=== PATIENT | male | born 1940 | race Caucasian/White ===

== ENCOUNTER 2016-10-10 14:14 | Emergency (ER) | payer MEDICARE ==
[2016-10-10 14:40] VITALS: BP 138/61
--- NOTE | 2016-10-10 14:49 | UC ---
Ear Complaint HPI - HPI Summary HPI Summary: 76 y/o male PMHX of COPD and HTN presents to the urgent care c/o part of toothpick in his LF ear after cleaning his ear with it about 2 hours ago. Pt stes he usually likes to clean his ears with toothpicks, but today he bent it and it accidentally broke. He denies ear pain. He is with O2 machine and he states his O2sat level is usually at 94%. Pt denies fever, SOB, cough, abdominal pain, chest pain, N/V/D. Pt has not other complains. - History of Current Complaint Chief Complaint: UCEar Stated Complaint: FB IN EAR Time Seen by Provider: 10/10/16 14:47 Hx Obtained From: Patient Onset/Duration: Sudden Onset, Lasting Hours, Still Present Severity Initially: Moderate Severity Currently: Moderate Pain Intensity: 0 Pain Scale Used: 0-10 Numeric Aggravating Factors: FB Alleviating Factors: Nothing - Allergies/Home Medications Allergies/Adverse Reactions: Allergies Allergy/AdvReac Type Severity Reaction Status Date / Time No Known Allergies Allergy Verified 10/10/16 14:40 PMH/Surg Hx/FS Hx/Imm Hx Previously Healthy: Yes Cardiovascular History: Hypertension, Myocardial Infarction Respiratory History: COPD Other History Of: Anticoagulant Therapy - Plavix - Surgical History Surgical History: Yes Surgery Procedure, Year, and Place: 04/30 CARDIAC CATH WITH STENT [place] [facility] [place] DRUG ELUTIN STENT) , RT RADICAL NEPHRECTOMY 08/22 [facility] [place] , RT LEG SURGERY HAS VASCULAR STENT [place] 2011, - Social History Occupation: Retired Lives: With Family Alcohol Use: None Substance Use Type: None Smoking Status (MU): Former Smoker Type: Cigarettes Have You Smoked in the Last Year: No When Did the Patient Quit Smoking/Using Tobacco: 1996 - Immunization History Most Recent Influenza Vaccination: 11/2013 Most Recent Tetanus Shot: 09/09/12 Most Recent Pneumonia Vaccination: 09/09/12 Review of Systems Constitutional: Negative Skin: Negative Eyes: Negative ENT: Other - Foreign body in his Left ear Respiratory: Negative Cardiovascular: Negative Gastrointestinal: Negative Genitourinary: Negative Motor: Negative Neurovascular: Negative Musculoskeletal: Negative Neurological: Negative Psychological: Negative All Other Systems Reviewed And Are Negative: Yes Physical Exam Triage Information Reviewed: Yes Appearance: Well-Appearing - Pt with a nasal canula and portable O2 machine in no pain distress, No Pain Distress, Well-Nourished, Obese Vital Signs: Initial Vital Signs Temp 98.8 F 10/10/16 14:36 Pulse 98 10/10/16 14:36 Resp 16 10/10/16 14:36 BP 138/61 10/10/16 14:36 Pulse Ox 94 10/10/16 14:36 Vital Signs Reviewed: Yes Eye Exam: Normal Eyes: Positive: Conjunctiva Clear - PERRLA, EOMI ENT: Positive: Normal ENT inspection, Hearing grossly normal, Pharynx normal, TMs normal - RT external ear canal clear, RT TM WNL. LF external ear canal with part of toothpick and cerumen. LF TM pearly in color and with light reflex. Dental Exam: Normal Neck exam: Normal Neck: Positive: Supple, Nontender, No Lymphadenopathy Respiratory Exam: Normal Respiratory: Positive: Chest non-tender, Lungs clear, Normal breath sounds Cardiovascular Exam: Normal Cardiovascular: Positive: RRR, No Murmur, Pulses Normal Abdominal Exam: Normal Abdomen Description: Positive: Nontender, No Organomegaly, Soft. Negative: CVA Tenderness (R), CVA Tenderness (L) Bowel Sounds: Positive: Present Musculoskeletal Exam: Normal Musculoskeletal: Positive: Strength Intact, ROM Intact, No Edema Neurological Exam: Normal Psychological Exam: Normal Skin Exam: Normal Ear Complaint Course/Dx - Course Course Of Treatment: 76 y/o male PMHX of COPD and HTN presents to the urgent care c/o part of toothpick in his LF ear after cleaning his ear with it about 2 hours ago. Pt stes he usually likes to clean his ears with toothpicks, but today he bent it and it accidentally broke. He denies ear pain. He is with O2 machine and he states his O2sat level is usually at 94%. Pt denies fever, SOB, cough, abdominal pain, chest pain, N/V/D. Pt has not other complains.Hx obtained. Left external ear canal with part of a toothpick and cerumen. Foreign body removed with the aid of a currete. Also moderate cerumen was removed. Pt tolerated well procedure. Pt Rx corticosporin Otic drops. Pt strongly advised to f/u with his Electronic Equipment Repairer for further management of his COPD. Advised if he develops fever or ear pain to return to the urgetn care for further treatmetn. Pt understood and agreed. Left the clinic ambulating - Differential Dx/Diagnosis Differential Diagnosis/HQI/PQRI: Cerumen Impaction, Foreign Body, Otitis Externa , Otitis Media, Perforated TM, Trauma Provider Diagnoses: 1- Foreign body in the Left external ear canal Discharge - Discharge Plan Condition: Stable Disposition: HOME Prescriptions: Neomyc/Polym/HC 1% OTIC SUSP* [Cortisporin Otic Susp 1%*] 4 drop LEFT EAR TID # 1 btl Patient Education Materials: Ear Foreign Body (ED) Referrals: Daniela Lira MD [Primary Care Provider] - 1 Week Renee Esposito MD [Medical Doctor] - 3 Days Additional Instructions: 1- please apply otic antibiotic as directed to avoid infection. If ear pain or fever develops despite antibiotic, please return to the urgent care or f/u with your PCP for further treatment. 2- Please f/u with your Electronic Equipment Repairer DR Winter in 2-3 days for further treatment on your COPD
== END 2016-10-10 15:33 | disposition home or self-care (01) ==
LOC: UCEAST 14:14
DX: T16.2XXA Foreign body in left ear, initial encounter (principal); X58.XXXA Exposure to other specified factors, initial encounter; Y93.9 Activity, unspecified; Y92.9 Unspecified place or not applicable; H61.22 Impacted cerumen, left ear; I25.2 Old myocardial infarction; I10 Essential (primary) hypertension; Z79.01 Long term (current) use of anticoagulants; J44.9 Chronic obstructive pulmonary disease, unspecified; E66.9 Obesity, unspecified; Z95.5 Presence of coronary angioplasty implant and graft; Z87.891 Personal history of nicotine dependence
CPT/HCPCS: 69200; 99212; G0463

== ENCOUNTER 2018-08-24 12:15 | Emergency (ER) | payer MEDICARE ==
[2018-08-24] MEDS ORDERED: Tetan/Diph/Pertus SYR(Tdap)* 0.5 ML SYR(BOOSTRIX) use SYR IM ONE (13:01)
--- NOTE | 2018-08-24 14:19 | ED ---
Skin Complaint - HPI Summary HPI Summary: [id number] patient presents with laceration to dorsal index finger on the left hand. Reports he was using a clean paring knife to open a Gatorade bottle when he accidentally slipped with the knife and cut his finger. This bled a good bit but he was able to control it with pressure and elevation. He does take anticoagulants. He is unsure of his last tetanus shot but is pretty sure it's been longer than 5 years. Denies numbness, tingling, weakness. No other concerns as result of the injury. - History of Current Complaint Chief Complaint: EDLacSutureRecheck Time Seen by Provider: 08/24/18 13:01 Stated Complaint: LEFT FINGER LAC PER PT Hx Obtained From: Patient, Family/Supervisor Forming And Tempering - son Pain Intensity: 1 - Allergy/Home Medications Allergies/Adverse Reactions: Allergies Allergy/AdvReac Type Severity Reaction Status Date / Time No Known Allergies Allergy Verified 08/24/18 12:39 PMH/Surg Hx/FS Hx/Imm Hx Previously Healthy: Yes Endocrine/Hematology History: Reports: Hx Anticoagulant Therapy - Plavix Denies: Hx Diabetes, Hx Thyroid Disease Cardiovascular History: Reports: Hx Coronary Artery Disease, Hx Hypercholesterolemia, Hx Hypertension, Hx Peripheral Vascular Disease Denies: Hx Congestive Heart Failure, Hx Pacemaker/ICD Respiratory History: Reports: Hx Asthma, Hx Chronic Bronchitis, Hx Chronic Obstructive Pulmonary Disease (COPD), Hx Pneumonia, Other Respiratory Problems/ Disorders - COPD O2 2L NIGHT AND PRN DURING THE DAY History: Reports: Hx Renal Disease - right nephrectomy, Other Problems/ Disorders - Kidney CA & right kidney removed. 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 CA - Surgical History Surgery Procedure, Year, and Place: 04/30 CARDIAC CATH WITH STENT AT [facility] [place] ([facility] DRUG ELUTIN STENT) , RT RADICAL NEPHRECTOMY 08/22 [facility] [place] , RT LEG SURGERY HAS VASCULAR STENT [place] 2011, Hx Anesthesia Reactions: No - Immunization History Immunizations Up to Date: No Infectious Disease History: No Infectious Disease History: Denies: Hx Hepatitis, Hx Human Immunodeficiency Virus (HIV), Traveled Outside the [place] in Last 30 Days - Social History Alcohol Use: None Hx Substance Use: No Substance Use Type: Reports: None Hx Tobacco Use: Yes Smoking Status (MU): Former Smoker Type: Cigarettes Have You Smoked in the Last Year: No Review of Systems Positive: no symptoms reported Musculoskeletal: Negative Skin: Other - lac Neurological: Negative Psychological: Normal All Other Systems Reviewed And Are Negative: Yes Physical Exam Triage Information Reviewed: Yes Vital Signs On Initial Exam: Initial Vitals Temp Pulse Resp BP Pulse Ox 99.1 F 92 18 171/79 99 08/24/18 12:33 08/24/18 12:33 08/24/18 12:33 08/24/18 12:33 08/24/18 12:33 Vital Signs Reviewed: Yes Appearance: Positive: Well-Appearing, No Pain Distress, Well-Nourished Skin: Positive: Warm, Skin Color Reflects Adequate Perfusion, Dry - linear laceration over dorsal Left index finger - wound is well approximated, on active bleeding - appears clean and tissue well perfused ENT: Positive: Hearing grossly normal Respiratory/Lung Sounds: Positive: Other - wearing nasal canula for O2 from personal rx - no resp distress Musculoskeletal: Positive: Normal, Strength/ROM Intact Neurological: Positive: Normal, Sensory/Motor Intact, Alert, Oriented to Person Place, Time Psychiatric: Positive: Normal Procedures - Laceration/Wound Repair 1 Location: upper extremity - Lt index finger - dorsal aspect Description: Linear Length, Depth and Shape: 1cm x 2mm Laceration/Wound Explored: clean Closure: Skin Adhesive, SteriStrips Layer Closure?: No Sterile Dressing Applied?: Yes - as above - also placed splint - hemodynamically stable Diagnostics - Vital Signs Vital Signs Temp Pulse Resp BP Pulse Ox 08/24/18 12:33 99.1 F 92 18 171/79 99 - Laboratory Lab Statement: Any lab studies that have been ordered have been reviewed, and results considered in the medical decision making process. Course/Dx - Diagnoses Provider Diagnoses: Laceration of left index finger Discharge - Sign-Out/Discharge Documenting (check all that apply): Patient Departure Patient Received Moderate/Deep Sedation with Procedure: No - Discharge Plan Condition: Stable Disposition: HOME Patient Education Materials: Finger Laceration (ED), Steristrips (ED), Skin Adhesive Care (ED) Referrals: Daniela Lira MD [Primary Care Provider] - Additional Instructions: Keep Dressing clean and dry and in place until strips fall off on their own ( usually occurs in 5 days). Keep splint in place until wound heals. For pain you may try rest, ice, elevation and acetaminophen as needed. * If you develop redness, swelling, streaking, purulent drainage, fevers or chills, seek medical attention sooner or return to the emergency department. - Billing Disposition and Condition Condition: STABLE Disposition: Home
[2018-08-24 14:54] VITALS: BP 136/85
== END 2018-08-24 14:53 | disposition home or self-care (01) ==
LOC: ED 12:15
DX: S61.211A Laceration without foreign body of left index finger without damage to nail, initial encounter (principal); Z23 Encounter for immunization; W26.0XXA Contact with knife, initial encounter; I10 Essential (primary) hypertension; I25.10 Atherosclerotic heart disease of native coronary artery without angina pectoris; J44.9 Chronic obstructive pulmonary disease, unspecified; Z79.01 Long term (current) use of anticoagulants; Z87.891 Personal history of nicotine dependence
CPT/HCPCS: 12011; 90471; 90715; 99282

== ENCOUNTER 2019-05-01 04:55 | Inpatient (IN) | payer MEDICARE ==
[2019-05-01] MEDS ORDERED: IPRATROPIUM ALBUTEROL ONE (05:02)
[2019-05-01] MEDS ORDERED: IPRATROPIUM 0.5 MG ONE (05:02)
[2019-05-01] MEDS ORDERED: ALBUTEROL ONE (05:02)
[2019-05-01] MEDS ORDERED: IPRATROPIUM ALBUTEROL INH ONE (05:03)
[2019-05-01] MEDS ORDERED: IPRATROPIUM 0.5 MG INH ONE (05:03)
[2019-05-01] MEDS ORDERED: ALBUTEROL INH ONE (05:03)
[2019-05-01 05:32] LABS: Influenza A Molecular Negative (Negative); Influenza B Molecular Negative (Negative)
[2019-05-01 05:42] LABS: ABS Basophils 0.1 10^3/ul (0-0.2); ABS Eosinophils 0.1 10^3/ul (0-0.6); ABS Lymphocytes 1.5 10^3/ul (1.0-4.8); ABS Monocytes 1.5 10^3/ul (0-0.8); Eosinophil % 0.5 %; Hematocrit 39 % (42-52); Mean Corpuscular HGB Conc 33 g/dL (31-36); Mean Corpuscular Hemoglobin 30 pg (27-31); Mean Corpuscular Volume 91 fL (80-94); Mean Platelet Volume 9.3 fL (7.4-10.4); Platelet Count 159 10^3/uL (150-450); Red Blood Count 4.33 10^6 /uL (4.18-5.48); Red Cell Distribution Width 14 % (10-15); White Blood Count 16.3 10^3/uL (3.5-10.8)
[2019-05-01 05:59] LABS: Albumin 4.1 g/dL (3.2-5.2); Albumin/Globulin Ratio 1.8 (1-3); BUN/Creatinine Ratio 15.3 (8-20); Calcium 9.6 mg/dL (8.6-10.3); EGFR African American 64.4 (>60); EGFR Non-African American 53.2 (>60); Globulin 2.3 g/dL (2-4); Potassium 4.7 mmol/L (3.5-5.0); Total Bilirubin 1.1 mg/dL (0.2-1.0); Total Protein 6.4 g/dL (6.4-8.9)
[2019-05-01 06:01] LABS: Troponin I 0.01 ng/mL (<0.03)
[2019-05-01] MEDS ORDERED: cefTRIAXone ADVAN VIAL 1 GM in NS 0.9% 50 ML 50 ML IVPB ONE (06:07)
[2019-05-01] MEDS ORDERED: Azithromycin 500 mg/250 ml NS 500 MG/250 ML BAG IVPB ONE (06:07)
[2019-05-01] MEDS ORDERED: Al Hydrox/Mg Hydrox/Simet LIQ 30 ML UDC PO PRN (08:59)
[2019-05-01] MEDS ORDERED: NS 0.9% 1000 ml BAG 1,000 ML IV SCH (12:00)
[2019-05-01] MEDS: methylPREDNISolone SOD 40 mg/ml 1 ml VIAL IV SCH ×2 (12:28→21:44)
[2019-05-01] MEDS: Heparin 5000 UNITS/ML VIAL(*) 1 ml vial SUBCUT SCH ×2 (13:31→21:44)
[2019-05-01] MEDS: IPRATROPIUM ALBUTEROL INH SCH ×2 (14:24→19:00)
[2019-05-01] MEDS: IPRATROPIUM 0.5 MG INH SCH ×2 (14:24→19:00)
[2019-05-01] MEDS: ALBUTEROL INH SCH ×2 (14:24→19:00)
[2019-05-02] MEDS: IPRATROPIUM 0.5 MG INH SCH ×3 (01:38→13:37)
[2019-05-02] MEDS: IPRATROPIUM ALBUTEROL INH SCH ×3 (01:38→13:37)
[2019-05-02] MEDS: ALBUTEROL INH SCH ×3 (01:38→13:37)
[2019-05-02] MEDS: Heparin 5000 UNITS/ML VIAL(*) 1 ml vial SUBCUT SCH ×3 (06:35→20:06)
[2019-05-02] MEDS: Azithromycin 500 mg/250 ml NS 500 MG/250 ML BAG IVPB SCH (06:35)
[2019-05-02 07:59] LABS: ABS Lymphocytes 1.2 10^3/ul (1.0-4.8); ABS Monocytes 0.8 10^3/ul (0-0.8); Hematocrit 37 % (42-52); Hemoglobin 12.2 g/dL (14.0-18.0); Lymphocyte % 7.5 %; Mean Corpuscular HGB Conc 33 g/dL (31-36); Mean Corpuscular Hemoglobin 30 pg (27-31); Mean Corpuscular Volume 89 fL (80-94); Platelet Count 193 10^3/uL (150-450); Red Blood Count 4.09 10^6 /uL (4.18-5.48); Red Cell Distribution Width 14 % (10-15)
[2019-05-02 08:06] LABS: BUN/Creatinine Ratio 21.3 (8-20); EGFR African American 33.6 (>60); EGFR Non-African American 27.8 (>60); Potassium 4.6 mmol/L (3.5-5.0)
[2019-05-02] MEDS: methylPREDNISolone SOD 40 mg/ml 1 ml VIAL IV SCH ×2 (08:21→19:55)
[2019-05-02] MEDS: Aspirin EC 81 mg TAB.EC (enteric coated) PO SCH (08:21)
[2019-05-02] MEDS ORDERED: NS 0.9% 1000 ml BAG 1,000 ML IV ONE (09:04)
[2019-05-02] MEDS: SPIRIVA Respimat (tiotropium) 2.5 mcg/inh Inhaler INH SCH (09:27)
[2019-05-02] MEDS: cefTRIAXone ADVAN VIAL 1 GM in NS 0.9% 50 ML 50 ML IVPB SCH (10:52)
[2019-05-02] MEDS: NS 0.9% 1000 ml BAG 1,000 ML IV SCH (16:38)
[2019-05-02] MEDS: IPRATROPIUM ALBUTEROL INH PRN (23:22)
[2019-05-02] MEDS: ALBUTEROL INH PRN (23:22)
[2019-05-02] MEDS: IPRATROPIUM 0.5 MG INH PRN (23:22)
[2019-05-03 04:37] LABS: ABS Lymphocytes 1.1 10^3/ul (1.0-4.8); ABS Monocytes 0.8 10^3/ul (0-0.8); Hematocrit 36 % (42-52); Hemoglobin 12.2 g/dL (14.0-18.0); Lymphocyte % 5.7 %; Mean Corpuscular HGB Conc 34 g/dL (31-36); Mean Corpuscular Hemoglobin 30 pg (27-31); Mean Corpuscular Volume 90 fL (80-94); Mean Platelet Volume 9.2 fL (7.4-10.4); Platelet Count 229 10^3/uL (150-450); Red Blood Count 4.06 10^6 /uL (4.18-5.48); Red Cell Distribution Width 14 % (10-15)
[2019-05-03 04:52] LABS: BUN/Creatinine Ratio 28.6 (8-20); Calcium 8.5 mg/dL (8.6-10.3); EGFR African American 38.2 (>60); EGFR Non-African American 31.6 (>60); Potassium 4.8 mmol/L (3.5-5.0)
[2019-05-03] MEDS: NS 0.9% 1000 ml BAG 1,000 ML IV SCH (05:27)
[2019-05-03] MEDS: Heparin 5000 UNITS/ML VIAL(*) 1 ml vial SUBCUT SCH ×3 (05:27→20:44)
[2019-05-03] MEDS: Azithromycin 500 mg/250 ml NS 500 MG/250 ML BAG IVPB SCH (05:27)
[2019-05-03] MEDS: cefTRIAXone ADVAN VIAL 1 GM in NS 0.9% 50 ML 50 ML IVPB SCH (07:52)
[2019-05-03] MEDS: Aspirin EC 81 mg TAB.EC (enteric coated) PO SCH (07:53)
[2019-05-03] MEDS: methylPREDNISolone SOD 40 mg/ml 1 ml VIAL IV SCH ×2 (07:53→19:31)
[2019-05-03] MEDS ORDERED: NS 0.9% 1000 ml BAG 1,000 ML IV SCH (09:15)
[2019-05-03] MEDS: SPIRIVA Respimat (tiotropium) 2.5 mcg/inh Inhaler INH SCH (10:44)
[2019-05-03] MEDS: IPRATROPIUM ALBUTEROL INH PRN ×2 (12:58→20:40)
[2019-05-03] MEDS: ALBUTEROL INH PRN ×2 (12:58→20:40)
[2019-05-03] MEDS: IPRATROPIUM 0.5 MG INH PRN ×2 (12:58→20:40)
[2019-05-04] MEDS: Heparin 5000 UNITS/ML VIAL(*) 1 ml vial SUBCUT SCH ×2 (05:59→13:45)
[2019-05-04] MEDS: IPRATROPIUM ALBUTEROL INH PRN (06:09)
[2019-05-04] MEDS: IPRATROPIUM 0.5 MG INH PRN (06:09)
[2019-05-04] MEDS: ALBUTEROL INH PRN (06:09)
[2019-05-04] MEDS: SPIRIVA Respimat (tiotropium) 2.5 mcg/inh Inhaler INH SCH (08:47)
[2019-05-04] MEDS: cefTRIAXone ADVAN VIAL 1 GM in NS 0.9% 50 ML 50 ML IVPB SCH ×2 (10:01→10:08)
[2019-05-04] MEDS: Aspirin EC 81 mg TAB.EC (enteric coated) PO SCH (10:02)
[2019-05-04 16:09] VITALS: BP 113/42
== END 2019-05-04 18:00 | disposition home or self-care (01) | DRG 871 ==
LOC: ED → EDERBED → ED 04:55 → MEDTELE 04:55 → ED 04:55 → AA 08:50 → SDS 08:59 → MED 08:59 → INTOOBSV 08:59 → MED 08:59 → OBSVTOIN 08:59 → AA 08:59 → UNDOADMOB 08:59 → MED 09:00 → AA 10:15 → UNDODEPER 10:15 → MED 05-02 10:17
PROVIDERS: ADMIT Emergency Medicine; ATTEND Emergency Medicine

== ENCOUNTER 2019-05-05 20:25 | Inpatient (IN) | payer MEDICARE ==
--- NOTE | 2019-05-05 21:02 | ED ---
Altered Mental Status - HPI Summary HPI Summary: This pt is a 78 Y/O M presenting to [facility] with a CC of AMS and unresponsiveness since this afternoon at 1700. His son states that the pt was discharged from the hospital on 05/04/2019 with a Dx of COPD exacerbation and was reported to be improving. He was unable to get out of bed and complained of feeling weak. His son states that he is on O2 at home and states that the machine has not been working well. This pt is a level 5 caveat due to his unresponsive nature. His medical records were update on his last visit where he expressed concerns and became a DNR/DNI. We will be using the HPE from his most recent visit as a determinate for his code status. - History Of Current Complaint Chief Complaint: EDAltMentalStatus Stated Complaint: UNRESPONSIVE PER EMS Time Seen by Provider: 05/05/19 20:36 Hx Obtained From: Family/Aws Solution Architect - Son, EMS Hx From Patient Unobtainable Due To: Other - Unresponsive Last Known Well Date: 05/05/2019 1700 Onset/Duration: Still Present Timing: Constant Severity Initially: Moderate Severity Currently: Severe Character: Responsiveness - unresponsive Aggravating Factor(s): Unknown Alleviating Factor(s): Nothing Associated Signs And Symptoms: Positive: Weakness - per son Related History: Recent Illness - D/C from hospital on 05/04/2019 with a Dx of COPD exacerbation - Allergies/Home Medications Allergies/Adverse Reactions: Allergies Allergy/AdvReac Type Severity Reaction Status Date / Time No Known Allergies Allergy Verified 05/05/19 20:34 Home Medications: Home Medications Simvastatin TAB(NF) [Zocor 20 MG (NF)] 40 mg PO DAILY 02/26/12 [History Confirmed 05/05/19] Aspirin EC TAB* [Ecotrin EC Low Dose 81 MG*] 81 mg PO DAILY 05/25/14 [History Confirmed 05/05/19] Metoprolol Succinate XL TAB* [Toprol XL TAB*] 50 mg PO DAILY 05/25/14 [History Confirmed 05/05/19] Allopurinol TAB* [Zyloprim 100 MG TAB*] 100 mg PO DAILY 08/26/15 [History Confirmed 05/05/19] Albuterol 2.5MG/3ML (0.083%)* [Ventolin 2.5 MG/3 ML NEB.LISETH*] 2.5 mg INH Q4H PRN 05/01/19 [History Confirmed 05/05/19] Clopidogrel TAB* [Plavix TAB*] 75 mg PO DAILY 05/01/19 [History Confirmed ] Cyanocobalamin TAB* [Vitamin B12 TAB*] 1,000 mcg PO DAILY 05/01/19 [History Confirmed 05/05/19] Enalapril Maleate 20 mg PO DAILY 05/01/19 [History Confirmed 05/05/19] Ranitidine TAB (NF) [Zantac TAB (NF)] 150 mg PO BID 05/01/19 [History Confirmed 05/05/19] Umeclidinium 62.5 MDI(NF) [Incruse ELLIPTA MDI (NF)] 1 puff INH DAILY 05/01/19 [ History Confirmed 05/05/19] predniSONE 50 mg TAB [Deltasone 50 mg TAB] 50 mg PO DAILY #4 tab 05/04/19 [Rx Confirmed 05/05/19] PMH/Surg Hx/FS Hx/Imm Hx Previously Healthy: No - [facility] Endocrine/Hematology History: Reports: Hx Anticoagulant Therapy - Plavix Denies: Hx Diabetes, Hx Thyroid Disease Cardiovascular History: Reports: Hx Coronary Artery Disease, Hx Hypercholesterolemia, Hx Hypertension, Hx Peripheral Vascular Disease Denies: Hx Congestive Heart Failure, Hx Pacemaker/ICD Respiratory History: Reports: Hx Asthma, Hx Chronic Bronchitis, Hx Chronic Obstructive Pulmonary Disease (COPD), Hx Pneumonia, Other Respiratory Problems/ Disorders - COPD O2 2L NIGHT AND PRN DURING THE DAY History: Reports: Hx Renal Disease - right nephrectomy, Other Problems/ Disorders - Kidney CA & right kidney removed. 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 CA - Surgical History Surgery Procedure, Year, and Place: 04/30 CARDIAC CATH WITH STENT AT [facility] [place] ([facility] DRUG ELUTIN STENT) , RT RADICAL NEPHRECTOMY 08/22 [facility] [place] , RT LEG SURGERY HAS VASCULAR STENT [place] 2012, Hx Anesthesia Reactions: No Infectious Disease History: No Infectious Disease History: Denies: Hx Hepatitis, Hx Human Immunodeficiency Virus (HIV), Traveled Outside the [place] in Last 30 Days - Family History Known Family History: Positive: Cardiac Disease - CAD, [place], Other - gastric cancer - Social History Alcohol Use: None Hx Substance Use: No Substance Use Type: Reports: None Hx Tobacco Use: Yes Smoking Status (MU): Former Smoker Type: Cigarettes Have You Smoked in the Last Year: No Review of Systems - ROS Summary Review of Systems Summary: A full ROS is unobtainable due to the pt's AMS. Pt is currently unresponsive and a level 5 caveat. Neurological/Mental Status: Other - unresponsive All Other Systems Reviewed And Are Negative: No Physical Exam - Summary Physical Exam Summary: Appearance: Elderly male unresponsive to verbal simulation. Pt is responsive to painful simulation. Skin: Warm, dry, no obvious rash Eyes: sclera anicteric, no conjunctival pallor, Pupils are pinpoint bilaterally. ENT: mucous membranes moist, Neck: deferred Respiratory: No signs of respiratory distress Cardiovascular: Appears well perfused, pulses are nml Abdomen: deferred Musculoskeletal: Moving all 4 extremities without obvious discomfort Neurological: Awake and alert, mentation is normal, speech is fluent and appropriate Psychiatric: affect is normal, does not appear anxious or depressed Triage Information Reviewed: Yes Vital Signs On Initial Exam: Initial Vitals Temp Pulse Resp BP Pulse Ox 99.3 F 104 20 130/50 92 05/05/19 20:31 05/05/19 20:31 05/05/19 20:31 05/05/19 20:31 05/05/19 20:31 Vital Signs Reviewed: Yes Procedures - Sedation Patient Received Moderate/Deep Sedation with Procedure: No Diagnostics - Vital Signs Vital Signs Temp Pulse Resp BP Pulse Ox 05/05/19 20:31 99.3 F 104 20 130/50 92 - Laboratory Result Diagrams: 05/05/19 21:53 05/05/19 21:53 Lab Statement: Any lab studies that have been ordered have been reviewed, and results considered in the medical decision making process. - Radiology CXR Radiology Interpretation Completed By: ED Physician Summary of Radiographic Findings: CXR: Large L pleural effusion which is new compared to most recent film on 05/01/2019. Pending offical review. - CT Brain CT CT Interpretation Completed By: Radiologist Summary of CT Findings: Patient motion without definite acute intracranial abnormality. ED physician has reviewed this report. - EKG 2154 Cardiac Rate: NL - 96 BPM EKG Rhythm: Sinus Rhythm ST Segment: Normal Ectopy: None Summary of EKG Findings: An EKG at 2154 reveals NSR at 96 BPM, nml axis, nml intervals. No STEMI. No acute changes. Interpreted by Dr. Roldan at 05/05/2019 2158. Re-Evaluation - Re-Evaluation First Eval Re-Evaluation Time: 21:03 Change: Unchanged Comment: Son informed of pt's desires to be a DNR/DNI. Son is aggreeable. Altered Mental Statu Course/Dx - Course Course Of Treatment: This pt is a 78 Y[facility]O M [facility] [place] [facility] [place] and unresponsiveness since this afternoon at 1700. His son states that the pt was discharged from the hospital yesterday and was reported to be improving. He was unable to get out of bed and complained of feeling weak. His PE found that he is an elderly male unresponsive to verbal simulation. Pt is responsive to painful simulation. Pupils are pinpoint bilaterally. His most recent documentation from his discharge summary states that the pt was of sound mind and wishes to be a DNR/DNI. His son was made aware and is agreeable to his father's wishes. An EKG at 2154 reveals NSR at 96 BPM, nml axis, nml intervals. No STEMI. No acute changes. His WBC is a 32.5. He has a troponin of a .04. Brain CT: Patient motion without definite acute intracranial abnormality. CXR: Large L pleural effusion which is new compared to most recent film on 05/01/2019. He will be admitted to [facility] [place] for further care with a Dx of AMS and a L plueral effusion. - Diagnoses Provider Diagnoses: AMS (altered mental status), Pleural effusion, left - Provider Notifications Discussed Care Of Patient With: Chelsie Sung Time Discussed With Above Provider: 23:32 Instructed by Provider To: Admit As Inpatient Admit/Transition Orders Completed By ED Provider: Yes Discharge ED - Sign-Out/Discharge Documenting (check all that apply): Patient Departure - admitted - Discharge Plan Condition: Stable Disposition: ADMITTED TO [facility] - Billing Disposition and Condition Condition: STABLE Disposition: Admitted to [facility] - Attestation Statements Document Initiated by Graeme: Yes Documenting Scribe: Alex Mederos Provider For Whom Graeme is Documenting (Include Credential): Rogelio Roldan MD Scribe Attestation: IAlex, scribed for Rogelio Roldan MD on 05/06/19 at 0648. Scribe Documentation Reviewed: Yes Provider Attestation: The documentation as recorded by the Alex gutierrez accurately reflects the service I personally performed and the decisions made by me, Rogelio Roldan MD Status of Scribe Document: Viewed
[2019-05-05 22:02] LABS: Hematocrit 42 % (42-52); Hemoglobin 13.5 g/dL (14.0-18.0); Mean Corpuscular HGB Conc 32 g/dL (31-36); Mean Corpuscular Hemoglobin 30 pg (27-31); Mean Corpuscular Volume 92 fL (80-94); Mean Platelet Volume 8.4 fL (7.4-10.4); Platelet Count 373 10^3/uL (150-450); Red Blood Count 4.57 10^6 /uL (4.18-5.48); Red Cell Distribution Width 14 % (10-15); White Blood Count 32.1 10^3/uL (3.5-10.8)
[2019-05-05 22:18] LABS: ALT 34 U/L (7-52); AST 28 U/L (13-39); Albumin 3.9 g/dL (3.2-5.2); Albumin/Globulin Ratio 1.6 (1-3); Alkaline Phosphatase 89 U/L (34-104); BUN/Creatinine Ratio 31.4 (8-20); Blood Urea Nitrogen 49 mg/dL (6-24); CO2 Carbon Dioxide 40 mmol/L (22-32); Calcium 9.6 mg/dL (8.6-10.3); Chloride 104 mmol/L (101-111); EGFR African American 52.6 (>60); EGFR Non-African American 43.5 (>60); Globulin 2.4 g/dL (2-4); Glucose 126 mg/dL (70-100); Potassium 5.6 mmol/L (3.5-5.0); Sodium 144 mmol/L (135-145); Total Protein 6.3 g/dL (6.4-8.9)
[2019-05-05 22:25] LABS: Troponin I 0.04 ng/mL (<0.03)
[2019-05-05 22:35] LABS: Polychromasia 1+
[2019-05-05 22:36] LABS: ABS Basophils 0.2 10^3/ul (0-0.2); ABS Neutrophils 23.9 10^3/ul (1.5-7.7); Alcohol 11 mg/dL (<10); Eosinophil % 0.1 %; Lymphocyte % 9.3 %; Nucleated Red Blood Cells % 0.1
[2019-05-06] MEDS ORDERED: Vancomycin(*) 1,000 MG in NS 0.9% 250 ML* 250 ML IVPB ONE (00:53)
[2019-05-06] MEDS ORDERED: Zosyn per Pharmacy* NOTE FOLLOW UP SCH (01:00)
[2019-05-06] MEDS ORDERED: Zosyn 3.375 GM IV - ED ONCE IVPB ONE ×2 (01:00)
[2019-05-06] MEDS ORDERED: Vancomycin per Pharmacy* NOTE FOLLOW UP SCH (01:00)
[2019-05-06] MEDS ORDERED: Enoxaparin(*) 30 MG/0.3 ML SYR SUBCUT SCH (01:00)
[2019-05-06] MEDS: methylPREDNISolone 125 MG* 2 ML VIAL IV SCH ×3 (01:13→18:15)
[2019-05-06] MEDS: Albuterol/Ipratropium NEB.SOL* Albuterol 2.5 MG/Ipratropium 0.5 MG 3 ML INH SCH ×4 (01:35→20:13)
[2019-05-06] MEDS ORDERED: NS 0.9% 500 ML* 500 ML IV ONE (01:52)
[2019-05-06] MEDS ORDERED: NS 0.9% 250 ML* 250 ML ONE (01:55)
[2019-05-06] MEDS ORDERED: Vancomycin(*) 1,250 MG in NS 0.9% 250 ML* 250 ML IVPB ONE (02:00)
[2019-05-06 03:11] LABS: C Reactive Protein 18.25 mg/L (<8.01)
[2019-05-06] MEDS ORDERED: ZOSYN 3.375 GM Q8H per EXTENDED INFUSION IVPB SCH ×2 (05:00)
[2019-05-06] MEDS ORDERED: Metoprolol Tartrate IV* 1 MG/ML 5 ML VIAL IV ONE (05:02)
--- NOTE | 2019-05-06 06:17 | HP ---
HISTORY AND PHYSICAL: DATE OF ADMISSION: 05/06/19 PRIMARY CARE PHYSICIAN: Daniela Brown MD HEALTHCARE PROXY: His son, Carlos Alberto Medel Jr., goes by Clarence. Phone number . CODE STATUS: DNR/DNI. CHIEF COMPLAINT: Acute onset of somnolence and altered mental status. HISTORY OF PRESENT ILLNESS: Mr. Medel is a 78-year-old man with COPD with chronic hypoxemic respiratory failure, on home O2 of 2 L; coronary artery disease with OR in 2011; and renal cell carcinoma, status post nephrectomy in 2003, who is presenting 1 day after discharge from this hospital for new onset of altered mental status since this afternoon. The patient was admitted for 3 days prior to discharge on day prior to presentation. This admission was for worsening dyspnea and sputum production consistent with a COPD exacerbation. Of note, during that hospitalization, the patient had 1 temperature in ER to 100.4 and was tachycardic. He was tested with a viral panel, flu swab, and for Covid, and all of these tests returned negative. During that time, he was on ceftriaxone and azithromycin; however, these were not continued after discharge as the patient symptomatically improved and it was thought he was not infected and had a COPD exacerbation in isolation. He was discharged on prednisone 50 mg to take for 4 additional days. His son reports that after discharge, while the patient felt better, he was not near his baseline but able to converse with the patient, text and also walk around the home. By the next morning, the patient had reported to his son that he felt low energy. He did not give any other symptoms , and he felt like he wanted to just lay in his bed after waking up and having a breakfast of coffee and toast. The patient went to lie down on his bed and his son went to the grocery store. By the time the son returned from the grocery store, the patient had largely lost his mental status, so the son brought him to the ER for further evaluation. In the emergency room, the patient was noted to have leukocytosis to 32, which is higher than his discharge white blood cell count of 19. His renal function had improved since discharge. He had a troponin elevation of 0.04 and chest x- ray concerning for large pleural effusion on the left, which is new. A brain CT was performed and difficult to interpret given motion, but was without acute findings. The patient received no interventions in the emergency room, was asked to be admitted to the hospitalist service for further workup and management. PAST MEDICAL HISTORY: 1. COPD with chronic hypoxic respiratory failure, on 2 L of oxygen at home. 2. CAD with OR in 2011. 3. Renal cell carcinoma, status post nephrectomy in 2003. 4. Peripheral vascular disease with vascular stent placed in the lower extremities. HOME MEDICATIONS: 1. Prednisone 50 mg daily for 3 more days. 2. Aspirin 81 mg daily. 3. Clopidogrel 75 mg daily. 4. Metoprolol succinate 50 mg daily. 5. Enalapril 20 mg daily. 6. Simvastatin 20 mg daily. 7. Incruse Ellipta 1 puff daily. 8. Ventolin nebulizer every 4 hours as needed for shortness of breath. 9. Vitamin B12 1000 mcg daily. 10. Ranitidine 150 mg twice a day as needed for heartburn. 11. Allopurinol 100 mg daily. ALLERGIES: No known drug allergies. FAMILY HISTORY: The mother from stomach cancer. Father when the patient was young of unclear cause. SOCIAL HISTORY: The patient lives in the home that he built and his son lives with him and cares for him. This son is Clarence, his older son who is also his proxy. The patient has a 35-pack year smoking history and quit in 1995. No alcohol or recreational drug use. 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 REVIEW OF SYSTEMS: A complete 10-point review of systems was unable to be performed given that the patient was unresponsive during the interview. The son had no further symptoms to elucidate. He denies that his father was complaining of a stiff neck, shortness of breath, fevers, worsening cough, dysuria, or headache. The son reports his father is on 2 L of supplemental oxygen at baseline. PHYSICAL EXAMINATION GENERAL: The patient is a critically ill, elderly man, in no acute distress, neither alert nor interactive. The patient breathing through mouth with mouth wide open. VITAL SIGNS: Afebrile, hear rate 110, blood pressure 110/46, respiratory rate 26, oxygen saturation 93% on 7 L face mask. HEENT: Moist mucous membranes. Pupils pinpoint bilaterally with anicteric sclerae. No pallor. LUNGS: Clear on right. Absent breath sounds over lower 2/3 of left lung. No wheeze. HEART: Tachycardic, regular rhythm. No murmurs, gallops, or rubs. EXTREMITIES: Warm and well perfused with 1+ edema half way up shins. NEUROLOGIC: Will open eyes to loud verbal stimuli and occasionally will track. Withdraws to pain in 4 extremities. Intermittently does not blink to visual threat. Face symmetric. DIAGNOSTIC STUDIES: CBC notable for leukocytosis to 32 with 74% neutrophils. Hemoglobin 13.5, which is slightly above baseline with normal MCV. BMP notable for elevated potassium to 5.6 BUN/creatinine 49/1.56, which is at the patient's more recent baseline and improved since last discharge. Bicarb is 40. Troponin 0.04. Chest x-ray with large left-sided pleural effusion, which is new compared to prior. CT head with motion artifact without definite acute intracranial abnormality. EKG with normal sinus rhythm, low voltage, rate 96. No acute ischemic changes. ASSESSMENT AND PLAN: Mr. Medel is a 78-year-old man with COPD on home oxygen, CAD with history of OR and recent hospitalization for COPD exacerbation, who is presenting now with acute alterations in mental status. He is found with new left-sided pleural effusion and physical exam concerning for significantly decreased mental status. 1. Altered mental status. The patient is at increased risk for cerebrovascular accident and it is possible that the patient did have a massive stroke, which would account for acute altered mental status. Brain CT is normal at this time, but if the patient is able to tolerate, we will get a brain MRI in the morning. It is also possible that the patient has an acute toxic metabolic encephalopathy, possibly from untreated infection. Likely source could be new left-sided effusion. If the patient indeed had pneumonia during last hospitalization, this would be the most likely source of infection. As patient has COPD, will check an ABG, and I suspect he may be retaining CO2 , however at this time, he is a poor candidate for BPAP and he is also DNI. Still pending UA result. Arguing against infections is that the patient has been afebrile and was not reporting focal signs of infection to his son. It does not seem the patient was started on any new medications since discharge and he has not access to opioids, so does not seem to be a medication-induced encephalopathy. 2. Chronic obstructive pulmonary disease. The patient unable to give symptoms , but for now can treat tachypnea and hypoxia as though he is having a chronic obstructive pulmonary disease exacerbation currently. We will order the patient for IV steroids and DuoNeb. The patient's white blood cell count is higher than discharge, although all his cell lines have increased, but in case the patient does have an ongoing bacterial infection, the patient will be started on broad-spectrum antibiotics with vancomycin and Zosyn. Will check ABG and CRP as well. The patient will be continued on his home inhaler umeclidinium 1 puff daily. Given severely impaired mental status, patient is not a candidate for BPAP at this time but will continue to re-assess. 3. History of myocardial infarction and peripheral vascular disease with stent. The patient will be continued on his home aspirin, clopidogrel and a statin. 4. DVT prophylaxis. Initiate Lovenox daily. 5. Code status. DNR/DNI. Had extensive conversation with the patient's son, Clarence and he expresses that his father wished to have no heroic measures and would want limited medical interventions, especially included DNR and DNI. This paperwork was filled out with this son at the bedside. The patient will be amenable to trial of antibiotics and other limited medical interventions, but no artificial feeds. Son understands that his father's prognosis is grave. TIME SPENT: Approximately 60 minutes was spent on admission of this patient, more than half of which is spent at bedside for interview and exam. [id number]/[facility] #: [id number] MTDD
[2019-05-06] MEDS: SPIRIVA Respimat* (tiotropium) 2.5 mcg/inh Inhaler INH SCH (08:03)
--- NOTE | 2019-05-06 08:47 | PN ---
Progress Note - Progress Note Date of Service: 05/06/19 Note: Called to bedside by RN and RT. Patient tachypneic, lethargic and on 15L simple mask. ABG confirms respiratory acidosis. Called patient's son and left message. Plan to transfer to ICU, discussed case with ICU attending and Dr Baker. Patient DNR and DNI but will need non-invasive respiratory support. Though patient was ruled out for COVID-19 during the last hospitalization, he now returns critically ill with new left sided pleural effusion, lung "white out " on chest xray. Recommend repeat COVID-19 rule out. Discussed with ICU attending.
[2019-05-06] MEDS ORDERED: Clopidogrel TAB* 75 MG PO SCH (09:00)
[2019-05-06] MEDS ORDERED: Metoprolol Succinate XL TAB* 50 MG PO SCH (09:00)
[2019-05-06] MEDS ORDERED: Allopurinol TAB* 100 MG PO SCH (09:00)
[2019-05-06] MEDS ORDERED: Atorvastatin* 20 MG TAB PO SCH (09:00)
[2019-05-06] MEDS ORDERED: Aspirin EC TAB* 81 MG TAB.EC PO SCH (09:00)
[2019-05-06] MEDS ORDERED: Lactated Ringers 1000 ML Bag* 1,000 ML IV ONE (11:00)
[2019-05-06 11:26] LABS: Hematocrit 42 % (42-52); Hemoglobin 13.6 g/dL (14.0-18.0); Mean Corpuscular HGB Conc 33 g/dL (31-36); Mean Corpuscular Hemoglobin 30 pg (27-31); Mean Corpuscular Volume 92 fL (80-94); Mean Platelet Volume 8.8 fL (7.4-10.4); Platelet Count 192 10^3/uL (150-450); Red Blood Count 4.57 10^6 /uL (4.18-5.48); Red Cell Distribution Width 14 % (10-15); White Blood Count 34.9 10^3/uL (3.5-10.8)
[2019-05-06 11:38] LABS: Albumin 3.4 g/dL (3.2-5.2); Albumin/Globulin Ratio 1.8 (1-3); BUN/Creatinine Ratio 28.6 (8-20); Calcium 8.9 mg/dL (8.6-10.3); EGFR African American 39.7 (>60); EGFR Non-African American 32.8 (>60); Globulin 1.9 g/dL (2-4); Total Bilirubin 0.6 mg/dL (0.2-1.0); Total Protein 5.3 g/dL (6.4-8.9)
[2019-05-06] MEDS ORDERED: Insulin REGULAR(*) 1 UNITS UNIT IV PUSH ONE (12:15)
[2019-05-06 12:28] LABS: Urine Appearance Turbid; Urine Bilirubin Negative (Negative); Urine Blood 3+ (Negative); Urine Color Yellow; Urine Glucose Negative (Negative); Urine Ketones Negative (Negative); Urine Nitrite Negative (Negative); Urine Protein 1+(30 mg/dL) (Negative); Urine Urobilinogen Negative (Negative)
[2019-05-06 12:34] LABS: Urine Bacteria Absent (Absent); Urine Red Blood Cell 3+(>10/hpf) (Absent); Urine White Blood Cell 3+(>20/hpf) (Absent)
[2019-05-06] MEDS: Dextrose 50% Syringe 50 ML* 25 GM/50 ML SYRINGE IV PUSH PRN (12:52)
[2019-05-06] MEDS ORDERED: Lactated Ringers 1000 ML Bag* 1,000 ML IV SCH (13:00)
[2019-05-06] MEDS: Metoprolol Tartrate IV* 1 MG/ML 5 ML VIAL IV SCH ×2 (14:20→20:05)
[2019-05-06] MEDS: Cefepime(*) 1 GM in NS 0.9% 50 ML* 50 ML IVPB SCH (14:20)
--- NOTE | 2019-05-06 14:54 | PN ---
Progress Note - Progress Note Date of Service: 05/06/19 Note: Consultation Note -- Critical Care Reason for consult: ICU transfer, AMS, hypercapnia requiring bipap Limitations in history/physical: Limited d/t AMS and family not currently present Date of consult: 05/06/2019 HPI: 78M with known medical history of COPD with chronic hypoxemic respiratory failure, on 2L nasal cannula home O2, CAD with OR in 2011, renal cell carcinoma s/p right nephrectomy in 2003, PVD with stents, with recent admission, presents with progressive altered mental status. He was discharged on 05/03 after a 3 day admission for COPD exacerbation. He went home feeling better, was at home one night, and woke up the next morning feeling tired and low energy. His son came home from the grocery store and noticed that he was very altered so he brought him to the ED. He was initially admitted to floor but transferred to ICU after experiencing respiratory acidosis with worsening confusion. ROS: ROS unable to be obtained secondary to AMS PMHx: COPD on 2L NC at home, CAD with OR in 2011, renal cell carcinoma s/p right nephrectomy in 2003, PVD with stents in lower extremities PSHx: unknown Family History: Mother- stomach cancer, Father passed when young of unclear cause Social History: Lives with his son, no smoking, alcohol or drug use Allergies: NKDA Home Medications: Simvastatin TAB(NF) [Zocor 20 MG (NF)] 40 mg PO DAILY 02/26/12 [History Confirmed 05/05/19] Aspirin EC TAB* [Ecotrin EC Low Dose 81 MG*] 81 mg PO DAILY 05/25/14 [History Confirmed 05/05/19] Metoprolol Succinate XL TAB* [Toprol XL TAB*] 50 mg PO DAILY 05/25/14 [History Confirmed 05/05/19] Allopurinol TAB* [Zyloprim 100 MG TAB*] 100 mg PO DAILY 08/26/15 [History Confirmed 05/05/19] Albuterol 2.5MG/3ML (0.083%)* [Ventolin 2.5 MG/3 ML NEB.LISETH*] 2.5 mg INH Q4H PRN 05/01/19 [History Confirmed 05/05/19] Clopidogrel TAB* [Plavix TAB*] 75 mg PO DAILY 05/01/19 [History Confirmed ] Cyanocobalamin TAB* [Vitamin B12 TAB*] 1,000 mcg PO DAILY 05/01/19 [History Confirmed 05/05/19] Enalapril Maleate 20 mg PO DAILY 05/01/19 [History Confirmed 05/05/19] Ranitidine TAB (NF) [Zantac TAB (NF)] 150 mg PO BID 05/01/19 [History Confirmed 05/05/19] Umeclidinium 62.5 MDI(NF) [Incruse ELLIPTA MDI (NF)] 1 puff INH DAILY 05/01/19 [ History Confirmed 05/05/19] predniSONE 50 mg TAB [Deltasone 50 mg TAB] 50 mg PO DAILY #4 tab 05/04/19 [Rx Confirmed 05/05/19] Tele: Sinus tachycardia Vitals: Vital Signs 05/05/19 05/05/19 05/05/19 20:31 20:40 21:03 Temperature 99.3 F Pulse Rate 104 101 100 Respiratory 20 Rate Blood Pressure 130/50 149/63 (mmHg) O2 Sat by Pulse 92 94 92 Oximetry 05/05/19 05/05/19 05/05/19 21:10 21:39 22:14 Temperature Pulse Rate 97 99 104 Respiratory 20 Rate Blood Pressure 111/44 138/50 (mmHg) O2 Sat by Pulse 91 92 97 Oximetry 05/05/19 05/05/19 05/05/19 22:39 23:00 23:09 Temperature Pulse Rate 98 104 102 Respiratory 20 20 20 Rate Blood Pressure 139/57 143/70 (mmHg) O2 Sat by Pulse 97 98 97 Oximetry 05/05/19 05/05/19 05/06/19 23:36 23:39 00:00 Temperature Pulse Rate 106 107 109 Respiratory 20 Rate Blood Pressure 142/65 (mmHg) O2 Sat by Pulse 96 96 95 Oximetry 05/06/19 05/06/19 05/06/19 00:09 00:23 00:40 Temperature 97.1 F Pulse Rate 111 107 Respiratory 23 Rate Blood Pressure 145/63 127/47 (mmHg) O2 Sat by Pulse 94 92 Oximetry 05/06/19 05/06/19 05/06/19 01:00 01:10 01:17 Temperature Pulse Rate 112 112 114 Respiratory 24 26 Rate Blood Pressure 98/37 110/46 (mmHg) O2 Sat by Pulse 91 90 90 Oximetry 05/06/19 05/06/19 05/06/19 01:36 01:39 02:00 Temperature Pulse Rate 112 112 111 Respiratory 26 28 27 Rate Blood Pressure 93/46 (mmHg) O2 Sat by Pulse 85 85 84 Oximetry 05/06/19 05/06/19 05/06/19 02:37 02:43 02:45 Temperature 97.5 F 97.1 F Pulse Rate 113 112 Respiratory 28 25 28 Rate Blood Pressure 107/41 104/68 (mmHg) O2 Sat by Pulse 88 85 Oximetry 05/06/19 05/06/19 05/06/19 04:01 04:24 05:24 Temperature 97.4 F Pulse Rate 120 127 Respiratory 20 Rate Blood Pressure 152/58 132/48 (mmHg) O2 Sat by Pulse 91 98 Oximetry 05/06/19 05/06/19 05/06/19 05:52 07:45 08:00 Temperature Pulse Rate 105 118 Respiratory 32 36 Rate Blood Pressure 118/50 (mmHg) O2 Sat by Pulse 95 92 Oximetry 05/06/19 05/06/19 05/06/19 08:04 08:42 08:45 Temperature 97.1 F 100.5 F Pulse Rate 122 128 127 Respiratory 36 36 37 Rate Blood Pressure 115/34 106/83 125/60 (mmHg) O2 Sat by Pulse 95 92 91 Oximetry 05/06/19 05/06/19 05/06/19 09:00 09:16 09:30 Temperature Pulse Rate 127 133 139 Respiratory 35 34 41 Rate Blood Pressure 126/71 107/59 120/36 (mmHg) O2 Sat by Pulse 91 93 94 Oximetry 05/06/19 05/06/19 05/06/19 09:45 10:00 10:01 Temperature Pulse Rate 132 130 130 Respiratory 34 33 33 Rate Blood Pressure 130/65 93/60 (mmHg) O2 Sat by Pulse 96 94 96 Oximetry 05/06/19 05/06/19 05/06/19 10:15 10:30 10:45 Temperature Pulse Rate 132 133 131 Respiratory 28 32 32 Rate Blood Pressure 96/57 92/59 97/45 (mmHg) O2 Sat by Pulse 96 97 98 Oximetry 05/06/19 05/06/19 05/06/19 11:00 11:15 11:31 Temperature Pulse Rate 132 132 133 Respiratory 34 31 24 Rate Blood Pressure 117/50 114/48 114/51 (mmHg) O2 Sat by Pulse 99 96 100 Oximetry 05/06/19 05/06/19 05/06/19 11:32 11:46 12:00 Temperature 100.6 F Pulse Rate 133 137 134 Respiratory 34 33 32 Rate Blood Pressure 110/47 127/68 102/50 (mmHg) O2 Sat by Pulse 99 100 99 Oximetry 05/06/19 05/06/19 05/06/19 12:15 12:30 12:45 Temperature Pulse Rate 131 130 129 Respiratory 30 25 28 Rate Blood Pressure 117/47 113/55 115/61 (mmHg) O2 Sat by Pulse 100 100 99 Oximetry 05/06/19 05/06/19 05/06/19 13:00 13:15 13:30 Temperature Pulse Rate 143 134 140 Respiratory 24 31 34 Rate Blood Pressure 105/44 99/52 106/87 (mmHg) O2 Sat by Pulse 100 99 99 Oximetry 05/06/19 05/06/19 05/06/19 13:45 13:49 14:00 Temperature Pulse Rate 139 138 133 Respiratory 16 29 25 Rate Blood Pressure 91/34 141/88 (mmHg) O2 Sat by Pulse 99 99 100 Oximetry 05/06/19 14:01 Temperature Pulse Rate 127 Respiratory 22 Rate Blood Pressure 94/45 (mmHg) O2 Sat by Pulse 100 Oximetry Intake and Output Last 24 Hours 05/04/19 05/05/19 05/06/19 05/07/19 06:59 06:59 06:59 06:59 Intake Total 285 1186 Output Total 0 220 Balance 285 966 Weight 211 lb Intake: IV Fluids 285 1086 LR 1086 Vancomycin 285 IVPB 100 ABX - ZOSYN 100 Oral 0 Output: Gómez 0 220 O2: Bipap Infusions: None Current Medications: Albuterol/Ipratropium (Duoneb (Albuterol 2.5 Mg/Ipratropium 0.5 Mg)) 1 neb INH Q6H [facility] Last Admin: 05/06/19 13:58 Dose: 1 neb Aspirin (Asa 300 Mg Supp) 300 mg MA DAILY [facility] Dextrose (D50w Syringe 50 Ml*) 25 gm IV PUSH ONCE PRN PRN Reason: FS < 60 Last Admin: 05/06/19 12:52 Dose: 25 gm Enoxaparin Sodium (Lovenox(*)) 30 mg SUBCUT Q24H [facility] Last Admin: 05/06/19 01:13 Dose: 30 mg Vancomycin HCl 1,250 mg/ (Sodium Chloride) 250 mls @ 166.667 mls/hr IVPB Q24H [facility] Lactated Ringer's (Lactated Ringers 1000 Ml Bag*) 1,000 mls @ 50 mls/hr IV PER RATE [facility] Cefepime HCl 1 gm/ Sodium (Chloride) 50 mls @ 100 mls/hr IVPB Q12H [facility] Last Admin: 05/06/19 14:20 Dose: 100 mls/hr Metronidazole/Sodium Chloride (Flagyl 500 Mg Ivpb*) 500 mg in 100 mls @ 100 mls /hr IVPB Q8H [facility] Methylprednisolone Sodium Succinate (Solu-Medrol 125mg *) 40 mg IV Q8H [facility] Last Admin: 05/06/19 12:51 Dose: 40 mg Metoprolol Tartrate (Lopressor Iv*) 5 mg IV Q6H [facility] Last Admin: 05/06/19 14:20 Dose: 5 mg Pharmacy Consult (Vancomycin Per Pharmacy*) 1 note FOLLOW UP .VANC PER PHARMACY PEBBLES; Protocol Pharmacy Profile Note (Vancomycin Trough Check) 1 note FOLLOW UP ONCE ONE Stop: 05/08/19 05:31 Tiotropium [place] (Spiriva Respimat 2.5 Mcg) 2 puff INH DAILY [facility] Last Admin: 05/06/19 08:03 Dose: Not Given Physical Exam: Constitutional: awake, alert, mild distress, no diaphoresis Head: normocephalic, atraumatic Eyes: no pallor, no icterus ENT: moist mucous membranes Neck: soft, supple CVS: tachycardic, regular, no murmur Chest/Resp: bilateral air entry, however very difficult to ascultate. No obvious accessory muscle use Abdomen/GI: soft, nontender, nondistended, BS hypoactive Ext/Msk: warm, pulses+, BLE edema 2+ Skin: intact, warm Neuro: awake, alert, unable to answer orientation questions, expressive and receptive aphasia, does not follow commands moving all extremities. Does track. Says "Im in a daze" repetitively and to every question. Labs: Laboratory Results - last 24 hr 05/05/19 05/05/19 05/05/19 21:53 21:53 21:53 WBC 32.1 H RBC 4.57 Hgb 13.5 L Hct 42 MCV 92 MCH 30 MCHC 32 RDW 14 Plt Count 373 MPV 8.4 Neut % (Auto) 74.6 Lymph % (Auto) 9.3 [place] % (Auto) 15.5 Eos % (Auto) 0.1 Baso % (Auto) 0.5 Absolute Neuts (auto) 23.9 H Absolute Lymphs (auto) 3.0 Absolute Monos (auto) 5.0 H Absolute Eos (auto) 0.0 Absolute Basos (auto) 0.2 Absolute Nucleated RBC 0.0 Immature Gran % 6.0 Neutrophils % 68.0 Band Neutrophils % 2.0 Lymphocytes % 10.0 Reactive Lymphs % Monocytes % 16.0 Metamyelocytes % 2.0 Myelocytes % 2.0 H Nucleated RBC % 0.1 Abs Neuts (Manual) Abs Lymphs (Manual) Abs Monocytes (Manual) Normal RBC Morphology Not Reportable Polychromasia 1+ Basophilic Stippling 1+ Patient Temperature ABG pH ABG pH (Temp Correct) ABG pCO2 ABG pCO2 (Temp Corrct ABG pO2 ABG pO2 (Temp Correct ABG HCO3 ABG O2 Saturation ABG Base Excess Respiration Rate O2 Delivery Device Ventilator Type Vent Mode FiO2 Inspiratory Time PEEP Pressure Support Pressure Control EPAP IPAP BiPAP Sodium 144 D Potassium 5.6 H Chloride 104 Carbon Dioxide 40 H Anion Gap Not Reportable BUN 49 H Creatinine 1.56 H Est GFR ( Amer) 52.6 Est GFR (Non-Af Amer) 43.5 BUN/Creatinine Ratio 31.4 H Glucose 126 H Lactic Acid 0.9 Calcium 9.6 Total Bilirubin 0.40 AST 28 ALT 34 Alkaline Phosphatase 89 Troponin I 0.04 H* C-Reactive Protein 18.25 H Total Protein 6.3 L Albumin 3.9 Globulin 2.4 Albumin/Globulin Ratio 1.6 Urine Color Urine Appearance Urine pH Ur Specific [place] Urine Protein Urine Ketones Urine Blood Urine Nitrate Urine Bilirubin Urine Urobilinogen Ur Leukocyte Esterase Urine WBC (Auto) Urine RBC (Auto) Urine Bacteria Urine Glucose Serum Alcohol 11 H 05/06/19 05/06/19 05/06/19 07:40 10:42 10:42 WBC 34.9 H RBC 4.57 Hgb 13.6 L Hct 42 MCV 92 MCH 30 MCHC 33 RDW 14 Plt Count 192 MPV 8.8 Neut % (Auto) Not Reportable Lymph % (Auto) Not Reportable [place] % (Auto) Not Reportable Eos % (Auto) Not Reportable Baso % (Auto) Not Reportable Absolute Neuts (auto) Not Reportable Absolute Lymphs (auto) Not Reportable Absolute Monos (auto) Not Reportable Absolute Eos (auto) Not Reportable Absolute Basos (auto) Not Reportable Absolute Nucleated RBC Not Reportable Immature Gran % 6.0 Neutrophils % 79.0 Band Neutrophils % 5.0 Lymphocytes % 1.0 Reactive Lymphs % 1.0 Monocytes % 13.0 Metamyelocytes % 1.0 Myelocytes % Nucleated RBC % Not Reportable Abs Neuts (Manual) 29.7 H Abs Lymphs (Manual) 0.7 L Abs Monocytes (Manual) 4.5 H Normal RBC Morphology Normal Polychromasia Basophilic Stippling Patient Temperature Not Reportable Not Reportable ABG pH 7.13 L* 7.27 L ABG pH (Temp Correct) Not Reportable Not Reportable ABG pCO2 93 H* 67 H ABG pCO2 (Temp Corrct Not Reportable Not Reportable ABG pO2 68 L 90 ABG pO2 (Temp Correct Not Reportable Not Reportable ABG HCO3 24.1 26.5 ABG O2 Saturation 96.3 99.0 H ABG Base Excess -1.0 2.0 Respiration Rate Not Reportable 20 O2 Delivery Device oxymask 10lpm Ventilator Type Not Reportable Not Reportable Vent Mode Not Reportable st FiO2 Not Reportable 100 Inspiratory Time Not Reportable Not Reportable PEEP Not Reportable Not Reportable Pressure Support Not Reportable Not Reportable Pressure Control Not Reportable Not Reportable EPAP Not Reportable 8 IPAP Not Reportable 18 BiPAP Not Reportable Not Reportable Sodium Potassium Chloride Carbon Dioxide Anion Gap BUN Creatinine Est GFR ( Amer) Est GFR (Non-Af Amer) BUN/Creatinine Ratio Glucose Lactic Acid Calcium Total Bilirubin AST ALT Alkaline Phosphatase Troponin I C-Reactive Protein Total Protein Albumin Globulin Albumin/Globulin Ratio Urine Color Urine Appearance Urine pH Ur Specific [place] Urine Protein Urine Ketones Urine Blood Urine Nitrate Urine Bilirubin Urine Urobilinogen Ur Leukocyte Esterase Urine WBC (Auto) Urine RBC (Auto) Urine Bacteria Urine Glucose Serum Alcohol 05/06/19 05/06/19 05/06/19 10:42 10:42 11:59 WBC RBC Hgb Hct MCV MCH MCHC RDW Plt Count MPV Neut % (Auto) Lymph % (Auto) [place] % (Auto) Eos % (Auto) Baso % (Auto) Absolute Neuts (auto) Absolute Lymphs (auto) Absolute Monos (auto) Absolute Eos (auto) Absolute Basos (auto) Absolute Nucleated RBC Immature Gran % Neutrophils % Band Neutrophils % Lymphocytes % Reactive Lymphs % Monocytes % Metamyelocytes % Myelocytes % Nucleated RBC % Abs Neuts (Manual) Abs Lymphs (Manual) Abs Monocytes (Manual) Normal RBC Morphology Polychromasia Basophilic Stippling Patient Temperature ABG pH ABG pH (Temp Correct) ABG pCO2 ABG pCO2 (Temp Corrct ABG pO2 ABG pO2 (Temp Correct ABG HCO3 ABG O2 Saturation ABG Base Excess Respiration Rate O2 Delivery Device Ventilator Type Vent Mode FiO2 Inspiratory Time PEEP Pressure Support Pressure Control EPAP IPAP BiPAP Sodium 145 Potassium 6.0 H Chloride 106 Carbon Dioxide 32 Anion Gap 7 BUN 57 H Creatinine 1.99 H Est GFR ( Amer) 39.7 Est GFR (Non-Af Amer) 32.8 BUN/Creatinine Ratio 28.6 H Glucose 122 H Lactic Acid 3.2 H* Calcium 8.9 Total Bilirubin 0.60 AST 18 ALT 26 Alkaline Phosphatase 62 Troponin I C-Reactive Protein Total Protein 5.3 L Albumin 3.4 Globulin 1.9 L Albumin/Globulin Ratio 1.8 Urine Color Yellow Urine Appearance Turbid Urine pH 5.0 Ur Specific [place] 1.020 Urine Protein 1+(30 mg/dl) A Urine Ketones Negative Urine Blood 3+ A Urine Nitrate Negative Urine Bilirubin Negative Urine Urobilinogen Negative Ur Leukocyte Esterase 2+ A Urine WBC (Auto) 3+(>20/hpf) A Urine RBC (Auto) 3+(>10/hpf) A Urine Bacteria Absent Urine Glucose Negative Serum Alcohol Imaging: Chest xray 05/04: Near complete opacification of left hemithorax suggestive of combination of large left pleural effusion and left lung atelectasis vs consolidation CTH 05/04: limited study but negative for acute changes Assessment: 78M with known medical history of COPD with chronic hypoxemic respiratory failure, on 2L nasal cannula home O2, CAD with OR in 2011, renal cell carcinoma s/p right nephrectomy in 2003, PVD with stents, with recent admission, presents with progressive altered mental status. He was discharged on 05/03 after a 3 day admission for COPD exacerbation. He went home feeling better, was at home one night, and woke up the next morning feeling tired and low energy. His son came home from the grocery store and noticed that he was very altered so he brought him to the ED. He was initially admitted to floor but transferred to ICU after experiencing respiratory acidosis with worsening confusion. - Respiratory acidosis - Acute hypercapnic respiratory failure - Acute on chronic hypoxic respiratory failure - COPD exacerbation - Altered mental status - Hypotension - Tachycardia - Hyperkalemia - Acute kidney injury - Sepsis Plan: Neuro- - AMS: acute. likely d/t respiratory acidosis, hypercapnia. Will treat hypercapnia. Will also be ruling out infection - CTH neg -Delirium prec; avoid BDZ CVS- - Hypotension: acute. Likely d/t sepsis. Has been tolerating fluids, not requiring pressors at this time -Maintain MAP>65 - Tachycardia: likely d/t sepsis. Responded slightly to fluid bolus. Takes metoprolol at home. Will start metoprolol 5mg IV q6hr scheduled. - PVD s/p stents: continue antiplatelets, unable to give PO so will give aspirin rectally. Unknown if patient has cardiac stents. Resp- - Hypercapnic respiratory failure: acute, likely d/t AMS. - Tolerating Bipap, ABG improved. -Wean Fio2 to keep sat>92% - Suspected continued COPD exacerbation: continue solumedeol 40mg q8hr - Need to obtain CT chest once stable -Bronchodilators PRN, Aspiration prec, Pulmonary Toilet -VAP bundle -DNR/DNI ID- - There is concern of infection with tachycardia, hypotension and temp 100.6. Attempted to sen culture but unable to get blood cultures. UA sent, sputum culture ordered. Already started on antibiotics. - D/t KO and to cover for aspiration, will change to vanco, cefepime, flagyl. - R/o COVID 19 considering his rapid decompensation - Recheck lactate @ 1800 - Goal temp<101 GI- -Nutrition: NPO while altered -GI prophylaxis: pepcid Renal- -strict I/O, replete to keep K>4, Mg>2 -continue gómez - Oliguria: likely d/t dehydration. Seems to have increased with fluid bolus. Will be cautious with fluid replacement considering his cardiac history - Hyperkalemia: acute. unable to give PO so will give d50 and insulin IV. Recheck BMP@ 1800 - KO: likely d/t dehydration. Continue hydration and monitor UOP Heme- Lovenox and SCDs for DVT prophylaxis Endo- Maintain BG<200, insulin protocol as needed Musculsk- pressure ulcer prophylaxis. Bedrest. Wounds- none Nutrition- NPO DVT prophylaxis: lovenox GI prophylaxis: pepcid Gómez Catheter: continue Disposition: Admit to ICU; Expected LOS>2 midnights; Patient requires Critical Care/ICU for hypercapnic respiratory failure, sepsis, AMS, KO Patient Clinical Status: critical Code Status: DNR/DNI Total Critical Care time is 60minutes
[2019-05-06] MEDS: metroNIDAZOLE IV 500 MG/100ML* 500 MG/100 ML BAG IVPB SCH ×2 (17:00→20:14)
[2019-05-06 19:06] LABS: BUN/Creatinine Ratio 32.9 (8-20); Blood Urea Nitrogen 54 mg/dL (6-24); CO2 Carbon Dioxide 30 mmol/L (22-32); Calcium 8.5 mg/dL (8.6-10.3); Chloride 111 mmol/L (101-111); EGFR African American 49.7 (>60); Glucose 105 mg/dL (70-100); Sodium 145 mmol/L (135-145)
[2019-05-06 19:10] LABS: Anion Gap 4 mmol/L (2-11); Potassium 5.5 mmol/L (3.5-5.0); Troponin I 0.05 ng/mL (<0.03)
[2019-05-06] MEDS: Acetylcysteine INHALATION SOL* 200 MG/ML NEB.SOLN 10 ML INH SCH (19:13)
--- NOTE | 2019-05-06 21:17 | CONS ---
PULMONARY CONSULTATION REPORT: DATE OF CONSULT: 05/06/19 CONSULTATION REQUESTED BY: Carmen Stanley MD.* REASON FOR CONSULTATION: Evaluation of abnormal CT chest. HISTORY OF PRESENT ILLNESS: The patient is a 78-year-old male with a history of COPD; chronic hypoxemic respiratory failure, on home O2 at 2 L; coronary artery disease, status post DE in 2011; renal cell carcinoma, status post nephrectomy in 2003. The patient recently was discharged from the hospital after being treated for acute COPD exacerbation. The patient was brought in for evaluation of altered mental status. The patient with fever of 100.4, tachycardia. During recent hospitalization, he had full respiratory viral panel including flu and Covid testing, which returned to be negative. He was treated with ceftriaxone, azithromycin, which were continued upon discharge. He was also discharged on tapering course of prednisone. The patient was doing better for a couple of days when he started having low energy and was found to be more lethargic. The patient was also noted to be confused and was brought in for further evaluation. The patient was noted to be having leukocytosis with WBC count of 32, which increased from discharge WBC count of 19. Chest x- ray showed whiteout on the left side. The patient placed on isolation for repeat testing for coronavirus. The patient with significant hypoxemic and hypercapnic respiratory failure. He is currently on BiPAP. The patient had CT scan of the chest performed earlier today - I have personally reviewed the images. The patient with evidence of complete atelectasis and volume loss at the left lung with associated small pleural effusion. The patient was started on nebulizer treatments and antibiotics. He was also started on Solu-Medrol. He is currently on BiPAP. The patient seen and examined at bedside. The patient not able to provide much history given respiratory distress and being on BiPAP. PAST MEDICAL HISTORY: 1. COPD with O2 at 2 L at home. 2. CAD with DE in 2011. 3. Renal cell carcinoma, status post nephrectomy in 2003. 4. Peripheral vascular disease with stent placement in the lower extremities. 5. Recent hospitalization for COPD exacerbation. HOME MEDICATIONS: 1. Prednisone. 2. Aspirin. 3. Plavix. 4. Metoprolol. 5. Enalapril. 6. Simvastatin. 7. Incruse. 8. Ventolin. 9. Vitamin B12. 10. Ranitidine. 11. Allopurinol. ALLERGIES: No known drug allergies. FAMILY HISTORY: Mother from stomach cancer. Father when the patient was young. SOCIAL HISTORY: The patient lives at home with his son who takes care of him. The patient is a former smoker with [id number] smoking history, quit in 1995. No alcohol or drug abuse. 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 REVIEW OF SYSTEMS: Limited given respiratory distress. PHYSICAL EXAMINATION: The patient appearing in mild respiratory distress. Vital Signs: Temperature 100.6, pulse 108 beats per minute, respiratory rate 21 per minute, O2 sat 100% on 100% FiO2. Blood pressure 117/57. HEENT: Pupils equal, reactive to light. BiPAP mask in place. Lungs: Diminished to absent breath sounds on the left side. Cardiovascular: S1, S2 present, regular. Abdomen: Soft, nontender, nondistended. Bowel sounds present. Extremities: Normal range of motion. Skin: No rash. LABORATORY DATA: WBC count 34.9, hemoglobin 13.6, hematocrit 42, platelet count of 192. Blood gas analysis from early this morning showed respiratory acidosis with pCO2 of 93, pH of 7.13, improved since the BiPAP. Sodium 145, potassium 6, chloride 106, bicarb 32, BUN 57, creatinine 1.99. Lactate elevated at 3.2. Troponin elevated. Legionella and Streptococcus pneumoniae negative. Sputum showed normal [place]. CT scan of the chest as described above in the HPI. IMPRESSION AND RECOMMENDATIONS: 78-year-old male with a history of chronic obstructive pulmonary disease, on oxygen at home, recently treated for acute chronic obstructive pulmonary disease exacerbation, presents with altered mental status, found to be having hypercapnic respiratory failure. The patient also with atelectasis and complete collapse of the left lung likely secondary to mucus plugging. The patient currently requiring 100% FiO2 on BiPAP. He will not be able to tolerate bronchoscopy as that would result in worsening of the hypoxemia. The patient currently also on the BiPAP, which limits ability to do bronchoscopy safely. The patient is DNR/DNI and does not want intubation at this time. Will continue with conservative management with mucus clearance. We will order chest PT, MetaNeb every 4 hours. Will also have Mucomyst to help mobilize the secretions. Above recommendations were discussed in detail with Dr. Stanley and Sandy Osman NP. Thank you for allowing me to participate in the care of this pleasant patient. Will follow up with you. [id number]/CPS #: [id number] [facility] CENTERHaylee
[2019-05-06] MEDS: Heparin VIAL(*) 5000 UNITS/ML VIAL (FIVE THOUSAND) SUBCUT SCH (21:46)
[2019-05-07] MEDS: Albuterol/Ipratropium NEB.SOL* Albuterol 2.5 MG/Ipratropium 0.5 MG 3 ML INH SCH ×6 (00:32→23:18)
[2019-05-07] MEDS: Acetylcysteine INHALATION SOL* 200 MG/ML NEB.SOLN 10 ML INH SCH ×7 (00:33→23:19)
[2019-05-07] MEDS: methylPREDNISolone 125 MG* 2 ML VIAL IV SCH ×3 (01:34→17:00)
[2019-05-07] MEDS: Cefepime(*) 1 GM in NS 0.9% 50 ML* 50 ML IVPB SCH ×2 (01:34→15:27)
[2019-05-07] MEDS: Metoprolol Tartrate IV* 1 MG/ML 5 ML VIAL IV SCH ×5 (01:35→20:40)
[2019-05-07] MEDS: metroNIDAZOLE IV 500 MG/100ML* 500 MG/100 ML BAG IVPB SCH ×3 (04:46→20:40)
[2019-05-07] MEDS: Heparin VIAL(*) 5000 UNITS/ML VIAL (FIVE THOUSAND) SUBCUT SCH ×3 (04:48→20:40)
[2019-05-07 05:13] LABS: Hematocrit 36 % (42-52); Hemoglobin 11.9 g/dL (14.0-18.0); Mean Corpuscular HGB Conc 33 g/dL (31-36); Mean Corpuscular Hemoglobin 30 pg (27-31); Mean Corpuscular Volume 91 fL (80-94); Mean Platelet Volume 9.1 fL (7.4-10.4); Platelet Count 144 10^3/uL (150-450); Red Blood Count 3.99 10^6 /uL (4.18-5.48); Red Cell Distribution Width 14 % (10-15); White Blood Count 26.4 10^3/uL (3.5-10.8)
[2019-05-07 05:28] LABS: BUN/Creatinine Ratio 36.1 (8-20); Calcium 8.9 mg/dL (8.6-10.3); EGFR African American 57.7 (>60); EGFR Non-African American 47.7 (>60)
[2019-05-07] MEDS: Vancomycin(*) 1,250 MG in NS 0.9% 250 ML* 250 ML IVPB SCH (05:29)
[2019-05-07 05:31] LABS: Potassium 5.7 mmol/L (3.5-5.0)
[2019-05-07 05:44] LABS: ABS Lymphocytes 0.6 10^3/ul (1.0-4.8); ABS Monocytes 0.5 10^3/ul (0-0.8); ABS Neutrophils 25.2 10^3/ul (1.5-7.7); Lymphocyte % 2.4 %; Nucleated Red Blood Cells % 0.1
[2019-05-07] MEDS: Famotidine IV* 10 MG/ML 2 ML (20 mg) IV SLOW PU SCH (08:17)
[2019-05-07] MEDS: SPIRIVA Respimat* (tiotropium) 2.5 mcg/inh Inhaler INH SCH (08:36)
[2019-05-07] MEDS ORDERED: Acetylcysteine INHALATION SOL* 200 MG/ML NEB.SOLN 10 ML INH SCH ×2 (09:00→13:00)
[2019-05-07] MEDS ORDERED: fentaNYL* 50 MCG/ML 2 ML VIAL (100 MCG VIAL) IV SLOW PU ONE (09:42)
[2019-05-07] MEDS ORDERED: Albuterol 2.5 MG/3 ML NEB.SOL* (0.083%) INH ONE ×2 (11:40→12:00)
[2019-05-07] MEDS ORDERED: Albuterol (2.5 MG) 0.5 % CONC 2.5 MG/0.5 ML NEB.SOLN (ICU and ED only) INH ONE (12:00)
--- NOTE | 2019-05-07 16:46 | PN ---
Progress Note - Progress Note Date of Service: 05/07/19 Note: Progress Note -- Critical Care 24 hour events/significant events: - Remains on bipap - Scheduled duonebs, mucomyst nebs, chest physiotherapy - Pulm consulted - Tachycardia improved with metoprolol PRN ROS: ROS unable to be obtained secondary to altered mental status Tele: sinus tachycardia Vitals: Vital Signs 05/06/19 05/06/19 05/06/19 17:00 17:14 17:15 Temperature Pulse Rate 124 123 114 Respiratory 27 20 21 Rate Blood Pressure 113/51 116/45 (mmHg) O2 Sat by Pulse 100 99 100 Oximetry 05/06/19 05/06/19 05/06/19 17:30 17:46 17:53 Temperature Pulse Rate 123 121 126 Respiratory 24 21 100 Rate Blood Pressure 123/78 111/61 (mmHg) O2 Sat by Pulse 100 99 27 Oximetry 05/06/19 05/06/19 05/06/19 18:00 18:16 18:30 Temperature Pulse Rate 129 132 122 Respiratory 19 18 25 Rate Blood Pressure 91/51 104/60 (mmHg) O2 Sat by Pulse 100 94 100 Oximetry 05/06/19 05/06/19 05/06/19 18:45 18:47 19:00 Temperature Pulse Rate 125 121 120 Respiratory 21 22 24 Rate Blood Pressure 70/37 74/37 (mmHg) O2 Sat by Pulse 100 99 100 Oximetry 05/06/19 05/06/19 05/06/19 19:01 19:13 19:16 Temperature Pulse Rate 127 126 129 Respiratory 26 28 33 Rate Blood Pressure 155/123 115/62 (mmHg) O2 Sat by Pulse 100 100 100 Oximetry 05/06/19 05/06/19 05/06/19 19:45 19:57 20:00 Temperature 99.2 F Pulse Rate 128 131 Respiratory 22 24 24 Rate Blood Pressure 124/84 120/52 (mmHg) O2 Sat by Pulse 99 100 Oximetry 05/06/19 05/06/19 05/06/19 20:15 20:30 20:31 Temperature Pulse Rate 100 100 100 Respiratory 20 21 23 Rate Blood Pressure 116/45 96/46 97/42 (mmHg) O2 Sat by Pulse 100 100 100 Oximetry 05/06/19 05/06/19 05/06/19 20:45 21:00 21:31 Temperature Pulse Rate 109 111 112 Respiratory 20 22 23 Rate Blood Pressure 100/72 106/48 104/46 (mmHg) O2 Sat by Pulse 100 98 100 Oximetry 05/06/19 05/06/19 05/06/19 21:45 21:52 22:00 Temperature Pulse Rate 115 117 Respiratory 20 22 22 Rate Blood Pressure 124/58 127/51 (mmHg) O2 Sat by Pulse 100 99 Oximetry 05/06/19 05/06/19 05/06/19 22:16 22:31 22:32 Temperature Pulse Rate 120 111 112 Respiratory 18 12 17 Rate Blood Pressure 120/98 72/38 70/32 (mmHg) O2 Sat by Pulse 100 98 98 Oximetry 05/06/19 05/06/19 05/06/19 22:35 22:41 22:44 Temperature Pulse Rate 115 111 111 Respiratory 25 22 21 Rate Blood Pressure 72/38 (mmHg) O2 Sat by Pulse 100 98 98 Oximetry 05/06/19 05/06/19 05/06/19 22:46 22:51 23:00 Temperature Pulse Rate 112 116 111 Respiratory 22 32 21 Rate Blood Pressure 116/53 83/34 (mmHg) O2 Sat by Pulse 98 100 99 Oximetry 05/06/19 05/06/19 05/06/19 23:16 23:30 23:45 Temperature Pulse Rate 119 121 112 Respiratory 19 24 18 Rate Blood Pressure 123/46 80/50 111/40 (mmHg) O2 Sat by Pulse 98 100 99 Oximetry 05/07/19 05/07/19 05/07/19 00:00 00:01 00:15 Temperature 98.7 F Pulse Rate 117 121 117 Respiratory 13 18 22 Rate Blood Pressure 101/48 120/52 (mmHg) O2 Sat by Pulse 99 100 100 Oximetry 05/07/19 05/07/19 05/07/19 00:30 00:33 00:45 Temperature Pulse Rate 118 120 123 Respiratory 31 28 22 Rate Blood Pressure 127/67 121/50 (mmHg) O2 Sat by Pulse 100 100 100 Oximetry 05/07/19 05/07/19 05/07/19 01:00 01:01 01:15 Temperature Pulse Rate 133 127 129 Respiratory 22 25 27 Rate Blood Pressure 141/49 133/54 (mmHg) O2 Sat by Pulse 100 99 100 Oximetry 05/07/19 05/07/19 05/07/19 01:30 01:45 02:00 Temperature Pulse Rate 128 117 116 Respiratory 33 23 27 Rate Blood Pressure 128/76 120/58 (mmHg) O2 Sat by Pulse 99 100 100 Oximetry 05/07/19 05/07/19 05/07/19 02:16 02:46 03:00 Temperature Pulse Rate 113 115 112 Respiratory 23 23 30 Rate Blood Pressure 116/50 121/51 86/70 (mmHg) O2 Sat by Pulse 100 100 99 Oximetry 05/07/19 05/07/19 05/07/19 03:15 03:31 03:45 Temperature Pulse Rate 110 117 120 Respiratory 21 29 23 Rate Blood Pressure 119/46 126/63 136/68 (mmHg) O2 Sat by Pulse 100 100 100 Oximetry 05/07/19 05/07/19 05/07/19 04:00 04:01 04:15 Temperature 98.5 F Pulse Rate 122 123 123 Respiratory 23 19 20 Rate Blood Pressure 131/56 122/66 (mmHg) O2 Sat by Pulse 100 100 100 Oximetry 05/07/19 05/07/19 05/07/19 04:31 04:46 05:00 Temperature Pulse Rate 123 125 113 Respiratory 20 25 23 Rate Blood Pressure 133/66 132/76 (mmHg) O2 Sat by Pulse 100 100 100 Oximetry 05/07/19 05/07/19 05/07/19 05:01 05:16 05:30 Temperature Pulse Rate 114 122 114 Respiratory 22 23 21 Rate Blood Pressure 77/32 112/57 126/59 (mmHg) O2 Sat by Pulse 100 100 99 Oximetry 05/07/19 05/07/19 05/07/19 05:45 06:00 06:15 Temperature Pulse Rate 129 126 119 Respiratory 23 19 22 Rate Blood Pressure 112/82 133/83 132/54 (mmHg) O2 Sat by Pulse 98 100 100 Oximetry 05/07/19 05/07/19 05/07/19 06:30 06:44 06:45 Temperature Pulse Rate 131 128 Respiratory 27 20 23 Rate Blood Pressure 137/66 103/61 (mmHg) O2 Sat by Pulse 100 100 Oximetry 05/07/19 05/07/19 05/07/19 07:00 07:16 07:44 Temperature Pulse Rate 133 135 133 Respiratory 22 21 29 Rate Blood Pressure 107/70 171/151 (mmHg) O2 Sat by Pulse 98 96 99 Oximetry 05/07/19 05/07/19 05/07/19 08:00 09:00 10:00 Temperature 98.3 F Pulse Rate 136 111 122 Respiratory 23 25 27 Rate Blood Pressure 141/68 143/72 163/104 (mmHg) O2 Sat by Pulse 99 100 91 Oximetry 05/07/19 05/07/19 05/07/19 11:00 11:37 11:51 Temperature Pulse Rate 129 105 Respiratory 36 18 23 Rate Blood Pressure 171/72 (mmHg) O2 Sat by Pulse 95 98 Oximetry 05/07/19 05/07/19 05/07/19 12:00 13:00 14:00 Temperature 98 F Pulse Rate 114 118 125 Respiratory 14 18 22 Rate Blood Pressure 174/90 147/63 (mmHg) O2 Sat by Pulse 98 98 99 Oximetry 05/07/19 05/07/19 05/07/19 15:00 15:47 16:00 Temperature Pulse Rate 118 111 114 Respiratory 29 25 23 Rate Blood Pressure 157/102 (mmHg) O2 Sat by Pulse 100 98 98 Oximetry 05/07/19 16:01 Temperature Pulse Rate 113 Respiratory 25 Rate Blood Pressure 161/54 (mmHg) O2 Sat by Pulse 98 Oximetry Intake and Output Last 24 Hours 05/05/19 05/06/19 05/07/19 05/08/19 06:59 06:59 06:59 06:59 Intake Total 285 1670 Output Total 0 898 660 Balance 285 772 -660 Weight 211 lb 212 lb 9.6 oz Intake: IV Fluids 285 1350 LR 1303 NS 47 Vancomycin 285 IVPB 320 ABX - ZOSYN 100 Metronidazole 220 Oral 0 Output: Urine 355 Gómez 0 543 660 Other: # Bowel Movements 0 O2: Bipap 18/8, 80%, RR 20 Infusions: LR @ 50 Medications: Acetylcysteine (Mucomyst Inhalation Michelle*) 400 mg INH Q4H [facility] Last Admin: 05/07/19 15:43 Dose: 400 mg Albuterol/Ipratropium (Duoneb (Albuterol 2.5 Mg/Ipratropium 0.5 Mg)) 1 neb INH Q4H [facility] Last Admin: 05/07/19 15:43 Dose: 1 neb Aspirin (Asa 300 Mg Supp) 300 mg AK DAILY [facility] Last Admin: 05/07/19 08:17 Dose: 300 mg Dextrose (D50w Syringe 50 Ml*) 25 gm IV PUSH ONCE PRN PRN Reason: FS < 60 Last Admin: 05/06/19 12:52 Dose: 25 gm Famotidine (Pepcid Iv*) 20 mg IV SLOW PU DAILY [facility] Last Admin: 05/07/19 08:17 Dose: 20 mg Heparin Sodium (Porcine) (Heparin Vial(*)) 5,000 units SUBCUT Q8HR [facility] Last Admin: 05/07/19 15:28 Dose: 5,000 units Heparin Sodium (Porcine) (Heparin Flush Picc/Ml/Cvc(*)) 0 ml FLUSH 0600,1800 [facility] Vancomycin HCl 1,250 mg/ (Sodium Chloride) 250 mls @ 166.667 mls/hr IVPB Q24H [facility] Last Admin: 05/07/19 05:29 Dose: 166.667 mls/hr Lactated Ringer's (Lactated Ringers 1000 Ml Bag*) 1,000 mls @ 50 mls/hr IV PER RATE [facility] Cefepime HCl 1 gm/ Sodium (Chloride) 50 mls @ 100 mls/hr IVPB Q12H [facility] Last Admin: 05/07/19 15:27 Dose: 100 mls/hr Metronidazole/Sodium Chloride (Flagyl 500 Mg Ivpb*) 500 mg in 100 mls @ 100 mls /hr IVPB Q8H [facility] Last Admin: 05/07/19 15:27 Dose: 100 mls/hr Methylprednisolone Sodium Succinate (Solu-Medrol 125mg *) 40 mg IV Q8H [facility] Last Admin: 05/07/19 08:17 Dose: 40 mg Metoprolol Tartrate (Lopressor Iv*) 7.5 mg IV Q4H [facility] Last Admin: 05/07/19 15:29 Dose: 7.5 mg Pharmacy Consult (Vancomycin Per Pharmacy*) 1 note FOLLOW UP .VANC PER PHARMACY [facility]; Protocol Pharmacy Profile Note (Vancomycin Trough Check) 1 note FOLLOW UP ONCE ONE Stop: 05/08/19 05:31 Tiotropium [place] (Spiriva Respimat 2.5 Mcg) 2 puff INH DAILY [facility] Last Admin: 05/07/19 08:36 Dose: Not Given Physical Exam: Constitutional: awake, alert, mild restlessness, no diaphoresis Head: normocephalic, atraumatic Eyes: no pallor, no icterus ENT: moist mucous membranes Neck: soft, supple CVS: tachycardia, regular, no murmur Chest/Resp: bilateral air entry, however very diminished and difficult to ascultate. No acc muscle use Abdomen/GI: soft, nontender, nondistended, BS+ Ext/Msk: warm, pulses+, BLE edema 2+ Skin: intact, warm Neuro: awake, alert, orientedx2, moving all extremities, follows minimal commands intermittently. Pupils are unequal, right 3mm, left 5mm. History of bilateral cataract surgery. Labs: Laboratory Results - last 24 hr 05/06/19 05/06/19 05/07/19 18:35 18:35 04:58 WBC RBC Hgb Hct MCV MCH MCHC RDW Plt Count MPV Neut % (Auto) Lymph % (Auto) [place] % (Auto) Eos % (Auto) Baso % (Auto) Absolute Neuts (auto) Absolute Lymphs (auto) Absolute Monos (auto) Absolute Eos (auto) Absolute Basos (auto) Absolute Nucleated RBC Nucleated RBC % Sodium 145 145 Potassium 5.5 H 5.7 H Chloride 111 110 Carbon Dioxide 30 32 Anion Gap 4 3 BUN 54 H 52 H Creatinine 1.64 H 1.44 H Est GFR ( Amer) 49.7 57.7 Est GFR (Non-Af Amer) 41.0 47.7 BUN/Creatinine Ratio 32.9 H 36.1 H Glucose 105 H 111 H Lactic Acid 1.6 Calcium 8.5 L 8.9 Troponin I 0.05 H* 05/07/19 04:58 WBC 26.4 H RBC 3.99 L Hgb 11.9 L Hct 36 L MCV 91 MCH 30 MCHC 33 RDW 14 Plt Count 144 L MPV 9.1 Neut % (Auto) 95.4 Lymph % (Auto) 2.4 [place] % (Auto) 2.1 Eos % (Auto) 0.0 Baso % (Auto) 0.1 Absolute Neuts (auto) 25.2 H Absolute Lymphs (auto) 0.6 L Absolute Monos (auto) 0.5 Absolute Eos (auto) 0.0 Absolute Basos (auto) 0.0 Absolute Nucleated RBC 0.0 Nucleated RBC % 0.1 Sodium Potassium Chloride Carbon Dioxide Anion Gap BUN Creatinine Est GFR ( Amer) Est GFR (Non-Af Amer) BUN/Creatinine Ratio Glucose Lactic Acid Calcium Troponin I Imaging: Chest xray 05/06: Complete opacification of left hemithorax Chest CT 05/05: Complete atelectasis and volume loss of the left lung field with small left pleural effusion, soft tissue fills the left mainstem bronchus, mucus plug vs mass. Chest xray 05/04: Near complete opacification of left hemithorax suggestive of combination of large left pleural effusion and left lung atelectasis vs consolidation CTH 05/04: limited study but negative for acute changes Assessment: 78M with known medical history of COPD with chronic hypoxemic respiratory failure, on 2L nasal cannula home O2, CAD with [place] in 2011, renal cell carcinoma s/p right nephrectomy in 2003, PVD with stents, with recent admission, presents with progressive altered mental status. He was discharged on 05/03 after a 3 day admission for COPD exacerbation. He went home feeling better, was at home one night, and woke up the next morning feeling tired and low energy. His son came home from the grocery store and noticed that he was very altered so he brought him to the ED. He was initially admitted to floor but transferred to ICU after experiencing respiratory acidosis with worsening confusion. - Respiratory acidosis - Acute hypercapnic respiratory failure - Acute on chronic hypoxic respiratory failure - COPD exacerbation - Altered mental status - Hypotension - Tachycardia - Hyperkalemia - Acute kidney injury - Sepsis Plan: Neuro- - AMS: acute. likely d/t respiratory acidosis, hypercapnia. Will treat hypercapnia. Will also be ruling out infection. Seems to be improved this morning slightly. - CTH neg -Delirium prec; avoid BDZ CVS- - Hypotension: rresolved. Has been tolerating gentle hydration. -Maintain MAP>65 - Tachycardia: likely d/t sepsis. Responded slightly to fluid bolus. Takes metoprolol at home. Increased metoprolol 7.5mg IV q4hr scheduled until able to take PO - PVD s/p stents: continue antiplatelets, unable to give PO so will give aspirin rectally. Unknown if patient has cardiac stents. Resp- - Hypercapnic respiratory failure: acute, likely d/t AMS. Improved on rpt ABG yesterday. - Very uncomfortable on bipap, mental status improving, saturating well. - Consulted pulm yesterday. Will be transitioning to nasal cannula today, draw ABG if mental status decreases, and place bipap at night, like he does at home. - Will continue another 24hrs of mucomyst inhalers, duonebs. -Wean Fio2 to keep sat>92% - Suspected continued COPD exacerbation: continue solumedeol 40mg q8hr - CT chest complete 05/05: Complete atelectasis and volume loss of the left lung field with small left pleural effusion, soft tissue fills the left mainstem bronchus, mucus plug vs mass. -Bronchodilators, Aspiration prec, Pulmonary Toilet -VAP bundle -DNR/DNI ID- - There is concern of infection with tachycardia, hypotension and temp 100.6. Attempted to sen culture but unable to get blood cultures. UA sent, sputum culture ordered. Already started on antibiotics. - D/t KO and to cover for aspiration, will change to vanco, cefepime, flagyl. - R/o COVID 19 considering his rapid decompensation - lactate trending down - Goal temp<101 GI- -Nutrition: NPO while altered and on bipap -GI prophylaxis: pepcid Renal- -strict I/O, replete to keep K>4, Mg>2 -continue gómez - Oliguria: likely d/t dehydration. Seems to have improved with fluid. Will be cautious with fluid replacement considering his cardiac history - Hyperkalemia: acute. unable to give PO so given d50 and insulin IV yesterday. Given 10mg albuterol neb today. Recheck BMP@ 1700 - KO: likely d/t dehydration. improving. Continue hydration and monitor UOP Heme- - Lovenox and SCDs for DVT prophylaxis Endo- Maintain BG<200, insulin protocol as needed Musculsk- pressure ulcer prophylaxis. Bedrest. Wounds- none Nutrition- NPO DVT prophylaxis: lovenox GI prophylaxis: pepcid Gómez Catheter: continue Disposition: Patient requires Critical Care/ICU for hypercapnic respiratory failure, sepsis, AMS, KO Patient Clinical Status: critical Code Status: DNR/DNI Total Critical Care time is 45minutes
[2019-05-07 17:37] LABS: BUN/Creatinine Ratio 37.7 (8-20); Calcium 9.4 mg/dL (8.6-10.3); EGFR African American 64.9 (>60); EGFR Non-African American 53.7 (>60)
[2019-05-07 17:46] LABS: Potassium 5.2 mmol/L (3.5-5.0)
[2019-05-07] MEDS ORDERED: Labetalol IV* 5 MG/ML 20 ML VIAL IV PUSH PRN (18:02)
[2019-05-07] MEDS ORDERED: Labetalol IV* 5 MG/ML 20 ML VIAL ONE (18:09)
[2019-05-08] MEDS: methylPREDNISolone 125 MG* 2 ML VIAL IV SCH ×3 (01:36→16:41)
[2019-05-08] MEDS: Metoprolol Tartrate IV* 1 MG/ML 5 ML VIAL IV SCH ×6 (01:36→19:48)
[2019-05-08] MEDS: Cefepime(*) 1 GM in NS 0.9% 50 ML* 50 ML IVPB SCH ×2 (01:37→12:57)
[2019-05-08] MEDS: Albuterol/Ipratropium NEB.SOL* Albuterol 2.5 MG/Ipratropium 0.5 MG 3 ML INH SCH ×6 (03:14→23:13)
[2019-05-08] MEDS: Acetylcysteine INHALATION SOL* 200 MG/ML NEB.SOLN 10 ML INH SCH ×6 (03:14→23:12)
[2019-05-08] MEDS: metroNIDAZOLE IV 500 MG/100ML* 500 MG/100 ML BAG IVPB SCH ×3 (04:55→21:56)
[2019-05-08 05:16] LABS: Hematocrit 39 % (42-52); Hemoglobin 12.1 g/dL (14.0-18.0); Mean Corpuscular HGB Conc 31 g/dL (31-36); Mean Corpuscular Hemoglobin 29 pg (27-31); Mean Corpuscular Volume 93 fL (80-94); Mean Platelet Volume 8.6 fL (7.4-10.4); Platelet Count 197 10^3/uL (150-450); Red Blood Count 4.14 10^6 /uL (4.18-5.48); Red Cell Distribution Width 15 % (10-15); White Blood Count 30.1 10^3/uL (3.5-10.8)
[2019-05-08 05:30] LABS: BUN/Creatinine Ratio 36.8 (8-20); Calcium 9.3 mg/dL (8.6-10.3); EGFR African American 57.7 (>60); EGFR Non-African American 47.7 (>60); Magnesium 2.2 mg/dL (1.9-2.7)
[2019-05-08] MEDS ORDERED: Vancomycin Trough Check NOTE FOLLOW UP ONE (05:30)
[2019-05-08 05:31] LABS: Potassium 5.6 mmol/L (3.5-5.0)
[2019-05-08 05:50] LABS: ABS Lymphocytes 0.6 10^3/ul (1.0-4.8); ABS Monocytes 0.9 10^3/ul (0-0.8); ABS Neutrophils 28.7 10^3/ul (1.5-7.7); Lymphocyte % 1.9 %; Nucleated Red Blood Cells % 0.1
[2019-05-08] MEDS ORDERED: Vancomycin(*) 750 MG in NS 0.9% 250 ML* 250 ML IVPB SCH ×2 (06:30→22:00)
[2019-05-08] MEDS: Heparin VIAL(*) 5000 UNITS/ML VIAL (FIVE THOUSAND) SUBCUT SCH ×3 (06:39→22:11)
[2019-05-08] MEDS: SPIRIVA Respimat* (tiotropium) 2.5 mcg/inh Inhaler INH SCH (08:44)
[2019-05-08] MEDS: Famotidine IV* 10 MG/ML 2 ML (20 mg) IV SLOW PU SCH (08:55)
[2019-05-08] MEDS ORDERED: Dextrose 50% Syringe 50 ML* 25 GM/50 ML SYRINGE IV PUSH PRN (09:04)
[2019-05-08] MEDS ORDERED: Insulin REGULAR(*) 1 UNITS UNIT IV PUSH ONE (09:05)
[2019-05-08] MEDS: Vancomycin(*) 1,250 MG in NS 0.9% 250 ML* 250 ML IVPB SCH (09:13)
[2019-05-08] MEDS: Dextrose 50% Syringe 50 ML* 25 GM/50 ML SYRINGE IV PUSH PRN (10:59)
--- NOTE | 2019-05-08 13:47 | PN ---
Progress Note - Progress Note Date of Service: 05/08/19 Note: Progress Note -- Critical Care 24 hour events/significant events: - Remains on bipap - Scheduled duonebs, mucomyst nebs, chest physiotherapy - tachycardia is improved - Attempted NC yesterday, became somnolent and required bipap to be replaced ROS: ROS unable to be obtained secondary to altered mental status Tele: sinus tachycardia Vitals: Vital Signs 05/07/19 05/07/19 05/07/19 14:00 15:00 15:47 Temperature Pulse Rate 125 118 111 Respiratory 22 29 25 Rate Blood Pressure 147/63 157/102 (mmHg) O2 Sat by Pulse 99 100 98 Oximetry 05/07/19 05/07/19 05/07/19 16:00 16:01 17:00 Temperature 98 F Pulse Rate 114 113 Respiratory 23 25 33 Rate Blood Pressure 161/54 179/75 (mmHg) O2 Sat by Pulse 98 98 Oximetry 05/07/19 05/07/19 05/07/19 18:00 18:31 19:00 Temperature Pulse Rate 126 110 117 Respiratory 36 30 27 Rate Blood Pressure 182/98 150/54 176/71 (mmHg) O2 Sat by Pulse 87 100 100 Oximetry 05/07/19 05/07/19 05/07/19 19:14 19:16 19:17 Temperature Pulse Rate 116 114 116 Respiratory 34 34 27 Rate Blood Pressure 104/72 (mmHg) O2 Sat by Pulse 97 98 99 Oximetry 05/07/19 05/07/19 05/07/19 19:31 19:36 19:42 Temperature Pulse Rate 119 114 112 Respiratory 35 37 31 Rate Blood Pressure 174/66 176/68 164/75 (mmHg) O2 Sat by Pulse 93 100 95 Oximetry 05/07/19 05/07/19 05/07/19 19:49 20:00 20:01 Temperature 97.8 F Pulse Rate 114 114 109 Respiratory 34 30 25 Rate Blood Pressure 168/76 160/62 (mmHg) O2 Sat by Pulse 92 95 95 Oximetry 05/07/19 05/07/19 05/07/19 20:31 21:00 21:30 Temperature Pulse Rate 108 101 98 Respiratory 26 19 24 Rate Blood Pressure 134/75 138/61 133/51 (mmHg) O2 Sat by Pulse 100 100 100 Oximetry 05/07/19 05/07/19 05/07/19 22:00 22:01 22:30 Temperature Pulse Rate 112 115 112 Respiratory 26 24 23 Rate Blood Pressure 144/118 166/90 (mmHg) O2 Sat by Pulse 97 98 98 Oximetry 05/07/19 05/07/19 05/07/19 23:00 23:19 23:30 Temperature Pulse Rate 112 110 110 Respiratory 24 24 21 Rate Blood Pressure 160/67 150/69 (mmHg) O2 Sat by Pulse 99 97 98 Oximetry 05/08/19 05/08/19 05/08/19 00:00 00:18 00:30 Temperature 98.7 F Pulse Rate 103 107 111 Respiratory 19 17 26 Rate Blood Pressure 138/70 156/68 (mmHg) O2 Sat by Pulse 97 99 99 Oximetry 05/08/19 05/08/19 05/08/19 01:00 01:30 02:00 Temperature Pulse Rate 108 105 99 Respiratory 28 24 24 Rate Blood Pressure 130/49 130/67 157/67 (mmHg) O2 Sat by Pulse 98 98 99 Oximetry 05/08/19 05/08/19 05/08/19 02:30 03:00 03:30 Temperature Pulse Rate 110 102 Respiratory 22 30 24 Rate Blood Pressure 166/120 156/71 141/63 (mmHg) O2 Sat by Pulse 99 98 Oximetry 05/08/19 05/08/19 05/08/19 04:00 04:30 05:00 Temperature 98.0 F Pulse Rate 105 105 114 Respiratory 26 24 26 Rate Blood Pressure 142/95 147/66 145/57 (mmHg) O2 Sat by Pulse 99 99 98 Oximetry 05/08/19 05/08/19 05/08/19 05:30 06:00 06:30 Temperature Pulse Rate 95 109 113 Respiratory 24 29 31 Rate Blood Pressure 151/65 163/67 140/71 (mmHg) O2 Sat by Pulse 98 97 97 Oximetry 05/08/19 05/08/19 05/08/19 07:00 07:30 08:00 Temperature Pulse Rate 121 116 118 Respiratory 31 31 34 Rate Blood Pressure 135/58 151/72 156/61 (mmHg) O2 Sat by Pulse 98 98 98 Oximetry 05/08/19 05/08/19 05/08/19 08:30 09:00 09:31 Temperature Pulse Rate 116 102 98 Respiratory 28 23 23 Rate Blood Pressure 136/52 153/80 131/103 (mmHg) O2 Sat by Pulse 98 98 99 Oximetry 05/08/19 05/08/19 05/08/19 10:00 10:30 11:00 Temperature Pulse Rate 98 93 92 Respiratory 22 20 26 Rate Blood Pressure 133/62 135/53 (mmHg) O2 Sat by Pulse 100 96 96 Oximetry 05/08/19 05/08/19 11:01 11:30 Temperature Pulse Rate 105 114 Respiratory 28 28 Rate Blood Pressure 137/84 146/87 (mmHg) O2 Sat by Pulse 96 99 Oximetry Intake and Output Last 24 Hours 05/06/19 05/07/19 05/08/19 05/09/19 06:59 06:59 06:59 06:59 Intake Total 285 1670 2282.7 Output Total 0 898 1955 1575 Balance 285 772 327.7 -1575 Weight 211 lb 212 lb 9.6 oz 213 lb Intake: IV Fluids 285 1350 1274.7 ABX - CEFEPIME 65 LR 1303 697 Metronidazole 213 NS 47 31.7 Vancomycin 285 268 IVPB 320 1008 ABX - CEFEPIME 100 ABX - ZOSYN 100 LR 808 Metronidazole 220 100 Oral 0 Output: Urine 336 225 1594 Gómez 0 543 1405 Other: # Bowel Movements 0 O2: Bipap 18/8, 40%, RR 18 Infusions: LR @ 50 Medications: Acetylcysteine (Mucomyst Inhalation Michelle*) 400 mg INH Q4H [facility] Last Admin: 05/08/19 11:23 Dose: 400 mg Albuterol/Ipratropium (Duoneb (Albuterol 2.5 Mg/Ipratropium 0.5 Mg)) 1 neb INH Q4H [facility] Last Admin: 05/08/19 11:23 Dose: 1 neb Aspirin (Asa 300 Mg Supp) 300 mg ID DAILY [facility] Last Admin: 05/08/19 09:12 Dose: 300 mg Dextrose (D50w Syringe 50 Ml*) 25 gm IV PUSH ONCE PRN PRN Reason: FS < 60 Last Admin: 05/08/19 10:59 Dose: 25 gm Dextrose (D50w Syringe 50 Ml*) 25 gm IV PUSH ONCE PRN PRN Reason: FS < 60 Famotidine (Pepcid Iv*) 20 mg IV SLOW PU DAILY [facility] Last Admin: 05/08/19 08:55 Dose: 20 mg Heparin Sodium (Porcine) (Heparin Vial(*)) 5,000 units SUBCUT Q8HR [facility] Last Admin: 05/08/19 06:39 Dose: 5,000 units Heparin Sodium (Porcine) (Heparin Flush Picc/Ml/Cvc(*)) 0 ml FLUSH 0600,1800 [facility] Last Admin: 05/08/19 04:41 Dose: Not Given Lactated Ringer's (Lactated Ringers 1000 Ml Bag*) 1,000 mls @ 50 mls/hr IV PER RATE [facility] Last Admin: 05/08/19 11:06 Dose: 50 mls/hr Cefepime HCl 1 gm/ Sodium (Chloride) 50 mls @ 100 mls/hr IVPB Q12H [facility] Stop: 05/08/19 14:00 Last Admin: 05/08/19 12:57 Dose: 100 mls/hr Metronidazole/Sodium Chloride (Flagyl 500 Mg Ivpb*) 500 mg in 100 mls @ 100 mls /hr IVPB Q8H [facility] Last Admin: 05/08/19 12:54 Dose: 100 mls/hr Cefepime HCl (Maxipime 1 Gm In Dextrose Duplex (*)) 1 gm in 50 mls @ 100 mls/ hr IV Q12H [facility] Vancomycin HCl 750 mg/ Sodium (Chloride) 250 mls @ 166.667 mls/hr IVPB 1000, 2200 [facility] Labetalol HCl (Trandate Iv*) 20 mg IV PUSH Q1H PRN PRN Reason: BLOOD PRESSURE Methylprednisolone Sodium Succinate (Solu-Medrol 125mg *) 40 mg IV Q8H [facility] Last Admin: 05/08/19 08:53 Dose: 40 mg Metoprolol Tartrate (Lopressor Iv*) 7.5 mg IV Q4H [facility] Last Admin: 05/08/19 12:52 Dose: 7.5 mg Pharmacy Consult (Vancomycin Per Pharmacy*) 1 note FOLLOW UP .VANC PER PHARMACY [facility]; Protocol Pharmacy Profile Note (Vancomycin Trough Check) 1 note FOLLOW UP 1000 ONE Stop: 05/09/19 10:01 Tiotropium [place] (Spiriva Respimat 2.5 Mcg) 2 puff INH DAILY [facility] Last Admin: 05/08/19 08:44 Dose: Not Given Physical Exam: Constitutional: obtunded, opens eyes to voice, does not follow commands. No distress, no diaphoresis Head: normocephalic, atraumatic Eyes: no pallor, no icterus ENT: moist mucous membranes Neck: soft, supple CVS: tachycardia, regular, no murmur Chest/Resp: bilateral air entry, however very diminished and difficult to ascultate. No acc muscle use Abdomen/GI: soft, nontender, nondistended, BS+ Ext/Msk: warm, pulses+, BLE edema 1+ Skin: intact, warm Neuro: obtunded but does open eyes to voice. Patient nonverbal this AM. Does not follow commands. Pupils are unequal, right 3mm, left 5mm. History of bilateral cataract surgery. Labs: Laboratory Results - last 24 hr 05/07/19 05/07/19 05/08/19 17:06 20:10 04:55 WBC RBC Hgb Hct MCV MCH MCHC RDW Plt Count MPV Neut % (Auto) Lymph % (Auto) Hartley % (Auto) Eos % (Auto) Baso % (Auto) Absolute Neuts (auto) Absolute Lymphs (auto) Absolute Monos (auto) Absolute Eos (auto) Absolute Basos (auto) Absolute Nucleated RBC Nucleated RBC % Patient Temperature Not Reportable ABG pH 7.27 L ABG pH (Temp Correct) Not Reportable ABG pCO2 77 H* ABG pCO2 (Temp Corrct Not Reportable ABG pO2 91 ABG pO2 (Temp Correct Not Reportable ABG HCO3 29.4 ABG O2 Saturation 99.1 H ABG Base Excess 5.7 H Respiration Rate Not Reportable O2 Delivery Device oximask Ventilator Type Not Reportable Vent Mode Not Reportable FiO2 33 Inspiratory Time Not Reportable PEEP Not Reportable Pressure Support Not Reportable Pressure Control Not Reportable EPAP Not Reportable IPAP Not Reportable BiPAP Not Reportable Sodium 147 H Potassium 5.2 H Chloride 110 Carbon Dioxide 31 Anion Gap 6 BUN 49 H Creatinine 1.30 H Est GFR ( Amer) 64.9 Est GFR (Non-Af Amer) 53.7 BUN/Creatinine Ratio 37.7 H Glucose 116 H Calcium 9.4 Phosphorus Magnesium Vancomycin Trough 10.6 05/08/19 05/08/19 04:55 04:55 WBC 30.1 H RBC 4.14 L Hgb 12.1 L Hct 39 L MCV 93 MCH 29 MCHC 31 RDW 15 Plt Count 197 MPV 8.6 Neut % (Auto) 95.2 Lymph % (Auto) 1.9 Hartley % (Auto) 2.8 Eos % (Auto) 0.0 Baso % (Auto) 0.1 Absolute Neuts (auto) 28.7 H Absolute Lymphs (auto) 0.6 L Absolute Monos (auto) 0.9 H Absolute Eos (auto) 0.0 Absolute Basos (auto) 0.0 Absolute Nucleated RBC 0.0 Nucleated RBC % 0.1 Patient Temperature ABG pH ABG pH (Temp Correct) ABG pCO2 ABG pCO2 (Temp Corrct ABG pO2 ABG pO2 (Temp Correct ABG HCO3 ABG O2 Saturation ABG Base Excess Respiration Rate O2 Delivery Device Ventilator Type Vent Mode FiO2 Inspiratory Time PEEP Pressure Support Pressure Control EPAP IPAP BiPAP Sodium 146 H Potassium 5.6 H Chloride 110 Carbon Dioxide 33 H Anion Gap 3 BUN 53 H Creatinine 1.44 H Est GFR ( Amer) 57.7 Est GFR (Non-Af Amer) 47.7 BUN/Creatinine Ratio 36.8 H Glucose 124 H Calcium 9.3 Phosphorus 4.0 Magnesium 2.2 Vancomycin Trough Imaging: Chest xray 05/06: Complete opacification of left hemithorax Chest CT 05/05: Complete atelectasis and volume loss of the left lung field with small left pleural effusion, soft tissue fills the left mainstem bronchus, mucus plug vs mass. Chest xray 05/04: Near complete opacification of left hemithorax suggestive of combination of large left pleural effusion and left lung atelectasis vs consolidation CTH 05/04: limited study but negative for acute changes Assessment: 78M with known medical history of COPD with chronic hypoxemic respiratory failure, on 2L nasal cannula home O2, CAD with TX in 2011, renal cell carcinoma s/p right nephrectomy in 2003, PVD with stents, with recent admission, presents with progressive altered mental status. He was discharged on 05/03 after a 3 day admission for COPD exacerbation. He went home feeling better, was at home one night, and woke up the next morning feeling tired and low energy. His son came home from the grocery store and noticed that he was very altered so he brought him to the ED. He was initially admitted to floor but transferred to ICU after experiencing respiratory acidosis with worsening confusion. - Respiratory acidosis - Acute hypercapnic respiratory failure - Acute on chronic hypoxic respiratory failure - COPD exacerbation - Altered mental status - Tachycardia - Hyperkalemia - Acute kidney injury Plan: Neuro- - AMS: acute. likely d/t respiratory acidosis, hypercapnia. Attempting to treat hypercapnia with bipap. Infection work up pending - CTH neg -Delirium prec; avoid BDZ CVS- -Maintain MAP>65 as long as SBP<160. - Use PRN antihypertensives if needed - Tachycardia: likely d/t sepsis. Responded slightly to fluid bolus. Takes metoprolol at home. Continue metoprolol 7.5mg IV q4hr scheduled until able to take PO - PVD s/p stents: continue antiplatelets, unable to give PO so will give aspirin rectally. Unknown if patient has cardiac stents. Resp- - Hypercapnic respiratory failure: acute, likely d/t AMS. Is requiring bipap, unable to wean off to NC for any length of time - Very uncomfortable on bipap, mental status improving, saturating well. - Pulmonology on board - Continue mucomyst inhalers, duonebs. -Wean Fio2 to keep sat>92% - Suspected continued COPD exacerbation: continue solumedrol 40mg q8hr - CT chest complete 05/05: Complete atelectasis and volume loss of the left lung field with small left pleural effusion, soft tissue fills the left mainstem bronchus, mucus plug vs mass. -Bronchodilators, Aspiration prec, Pulmonary Toilet -DNR/DNI ID- - Infection work up pending. - D/t KO and to cover for aspiration, will change to vanco, cefepime, flagyl. - R/o COVID 19 considering his rapid decompensation - Left eye bacterial conjunctivitis: started ofloxicin drops for 5 days - Goal temp<101 GI- -Nutrition: NPO while altered and on bipap -GI prophylaxis: pepcid Renal- -strict I/O, replete to keep K>4, Mg>2 -continue gómez - Oliguria: likely d/t dehydration. Seems to have improved with fluid. Will be cautious with fluid replacement considering his cardiac history - Hyperkalemia: acute. Given d50 and insulin IV. - KO: likely d/t dehydration. improving. Continue hydration and monitor UOP Heme- - SCDs for DVT prophylaxis. Avoid lovenox d/t KO Endo- Maintain BG<200, insulin protocol as needed Musculsk- pressure ulcer prophylaxis. Bedrest. Wounds- none Nutrition- NPO DVT prophylaxis: scds GI prophylaxis: pepcid Gómez Catheter: continue Disposition: Patient requires Critical Care/ICU for hypercapnic respiratory failure, sepsis, AMS, KO Patient Clinical Status: critical Code Status: DNR/DNI Total Critical Care time is 30minutes
[2019-05-08] MEDS: Ciprofloxacin 0.3% OPTH.SOL* 5 ML BTL LEFT EYE SCH ×2 (16:41→21:56)
[2019-05-09] MEDS: Metoprolol Tartrate IV* 1 MG/ML 5 ML VIAL IV SCH ×2 (00:36→04:05)
[2019-05-09] MEDS: methylPREDNISolone 125 MG* 2 ML VIAL IV SCH (00:36)
[2019-05-09] MEDS ORDERED: Cefepime 1 GM in Dextrose(*) 1 GM/50 ML q12h (Duplex) IV SCH (01:00)
[2019-05-09] MEDS: Acetylcysteine INHALATION SOL* 200 MG/ML NEB.SOLN 10 ML INH SCH ×3 (03:07→12:37)
[2019-05-09] MEDS: Albuterol/Ipratropium NEB.SOL* Albuterol 2.5 MG/Ipratropium 0.5 MG 3 ML INH SCH ×3 (03:08→12:37)
[2019-05-09] MEDS: metroNIDAZOLE IV 500 MG/100ML* 500 MG/100 ML BAG IVPB SCH (04:10)
[2019-05-09] MEDS: Heparin VIAL(*) 5000 UNITS/ML VIAL (FIVE THOUSAND) SUBCUT SCH (05:21)
[2019-05-09 05:48] LABS: Hematocrit 38 % (42-52); Hemoglobin 11.8 g/dL (14.0-18.0); Mean Corpuscular HGB Conc 31 g/dL (31-36); Mean Corpuscular Hemoglobin 29 pg (27-31); Mean Corpuscular Volume 94 fL (80-94); Mean Platelet Volume 9.2 fL (7.4-10.4); Platelet Count 214 10^3/uL (150-450); Red Blood Count 4.01 10^6 /uL (4.18-5.48); Red Cell Distribution Width 15 % (10-15); White Blood Count 28.2 10^3/uL (3.5-10.8)
[2019-05-09 06:13] LABS: Magnesium 2.1 mg/dL (1.9-2.7)
[2019-05-09 06:14] LABS: Potassium 5.6 mmol/L (3.5-5.0)
[2019-05-09 06:17] LABS: ABS Lymphocytes 0.8 10^3/ul (1.0-4.8); ABS Monocytes 0.6 10^3/ul (0-0.8); ABS Neutrophils 26.7 10^3/ul (1.5-7.7); Nucleated Red Blood Cells % 0.1
[2019-05-09 06:19] LABS: BUN/Creatinine Ratio 37.7 (8-20); EGFR African American 56.8 (>60); EGFR Non-African American 46.9 (>60); Phosphorus 3.7 mg/dL (2.5-5.0)
[2019-05-09] MEDS: SPIRIVA Respimat* (tiotropium) 2.5 mcg/inh Inhaler INH SCH (08:01)
[2019-05-09] MEDS ORDERED: Albuterol/Ipratropium NEB.SOL* Albuterol 2.5 MG/Ipratropium 0.5 MG 3 ML ONE (08:07)
[2019-05-09 09:35] VITALS: BP 152/57
[2019-05-09] MEDS ORDERED: Vancomycin Trough Check NOTE FOLLOW UP ONE (10:00)
[2019-05-09] MEDS ORDERED: Morphine 10 MG/ML VIAL (1 ml) ONE ×2 (10:29→11:39)
[2019-05-09] MEDS ORDERED: Morphine INJ* 4 MG/ML 1 ML SYRINGE (NEW SYRINGE VERSION) IV ONE (10:32)
[2019-05-09] MEDS ORDERED: Morphine 4 MG/ML VIAL (1 ml) 4 MG/ML VIAL IV ONE (10:32)
[2019-05-09] MEDS ORDERED: Morphine 10 MG/ML VIAL (1 ml) IV ONE (11:33)
--- NOTE | 2019-05-09 12:49 | PN ---
Progress Note - Progress Note Date of Service: 05/09/19 Note: Note: Patient seen and examined this morning during rounds, per RN, patient has been progressively unresponsive to verbal or tactile stimuli and was on bipap all night. ABG ordered, ph 7.19, CO2 96, PO122 on maxed bipap settings. Call placed to patient's son Carlos Alberto Calderón that patient has failed bipap and at this time would require intubation which the patient expressly does not want. Requested family to come in, as the patient will likely soon. Patient's family arrived and agreed to remove bipap. They were allowed by phone to communicate with RN at bedside and speak to the patient to say goodby and were able to view him through the door given precautions for COVID-19 rule out status. Morphine 4 mg initially given for discomfort and tachypnea (RR>40). He received 2 additional pushes of morphine after removal of bipap and in approximately 40 minutes. Asystole noted on monitor, no spontaneous respirations noted, no pupilary response. Time of 12:19pm. EDRS #[id number] Completed and certified
--- NOTE | 2019-05-09 15:19 | DS ---
CC: Dr. Daniela Brown; Dr. Renee Esposito * DISCHARGE SUMMARY: DATE OF ADMISSION: 05/06/19 DATE OF DISCHARGE: 05/09/19 ATTENDING PROVIDER: Dr. Sung * (DICTATED BY RYDER CHAPMAN NP) PRIMARY CARE PROVIDER: Dr. Daniela Brown. ICU BIRTH ATTENDANT AND ATTENDING PHYSICIAN: Dr. Renee Esposito. HOSPITAL COURSE: Please see admitting H and P on 05/06/19, but in short, Mr. Medel was a 78-year-old male patient who presented on 05/06/19 with acute onset altered mental status. Mr. Medel presented from home in hypoxemic respiratory failure. He normally was on 2 L of oxygen around the clock secondary to advanced COPD. He also had history of coronary artery disease and renal cell carcinoma. The patient had been admitted to the hospital and discharged only 1 day before for complaint of dyspnea and sputum production, was treated for COPD exacerbation. The patient had some tachycardia and fever. He was pancultured and tested for flu and also respiratory panel. He was also tested for COVID-19 which was negative. He was treated with ceftriaxone and azithromycin and then he was discharged to home. However, the patient became progressively altered and hypoxic at home and then he was readmitted. Shortly after admission, he became tachypneic and increasingly lethargic. He was placed on 15 L by simple mask. ABG was performed. The patient was shown to be very acidotic and required BiPAP. His chest x-ray showed a left- sided pleural effusion and complete atelectatic changes on the left with lenny out lung. At this point, the patient was transferred to the ICU for rescue BiPAP. However, the patient was confirmed to be DNR/DNI, but was okay for noninvasive measures. The patient spent the last 24 hours on BiPAP; however, he became progressively obtunded this morning and then nonresponsive to verbal and tactile stimuli. We had an ABG performed this morning to correlate his status with his presentation. His pH remained acidotic at 7.17, CO2 was still 96 even being on BiPAP for 24 hours, pO2 was only at 122 on max BiPAP settings. At this time, I reached out to the patient's son and healthcare proxy and explained that the patient was failing his trial of BiPAP and honestly into these circumstances, would actually qualify for intubation; however, intubation was against the patient's wishes as he was DNR/DNI and I requested the family to come in and see Mr. Medel because it did appear that he was progressing rapidly and may actually while on BiPAP. To complicate matters further, he was rescreened for a COVID-19 and this testing was not back and we are still awaiting those results. The patient's son, Carlos Alberto Sousa called the rest of his family and they did come in to see him. They opted to have BiPAP removed as the patient was not responsive at all by the time family arrived. BiPAP was removed. The patient within 40 minutes after having several doses of morphine for comfort and the patient did appear comfortable at the time of passing. Time of was 12:19 p.m. Please see note separate from this document. DISPOSITION: . TIME SPENT: Thirty-five minutes counseling family and on discharge planning. RYDER CHAPMAN NP [id number]/CPS #: [id number] [email or web address]
[2019-05-11] MEDS ORDERED: Vancomycin Trough Check NOTE FOLLOW UP ONE (09:30)
== END 2019-05-09 12:47 | disposition expired | DRG 871 ==
LOC: ED 20:25 → MEDTELE 05-06 00:58 → ICU 05-06 08:07
PROVIDERS: ADMIT Internal Medicine; ATTEND Internal Medicine
PROC: 5A09457 Assistance with Respiratory Ventilation, 24-96 Consecutive Hours, Continuous Positive Airway Pressure (ICD-10-PCS; principal; 2019-05-06)
PROC: 05HY33Z Insertion of Infusion Device into Upper Vein, Percutaneous Approach (ICD-10-PCS; 2019-05-07)
DX: A41.9 Sepsis, unspecified organism (principal); G92 Toxic encephalopathy; J96.02 Acute respiratory failure with hypercapnia; J96.21 Acute and chronic respiratory failure with hypoxia; J44.1 Chronic obstructive pulmonary disease with (acute) exacerbation; E87.2 Acidosis; N17.9 Acute kidney failure, unspecified; J98.11 Atelectasis; J90 Pleural effusion, not elsewhere classified; I25.10 Atherosclerotic heart disease of native coronary artery without angina pectoris; Z66 Do not resuscitate; D72.829 Elevated white blood cell count, unspecified; I73.9 Peripheral vascular disease, unspecified; R41.82 Altered mental status, unspecified; F80.2 Mixed receptive-expressive language disorder; I95.9 Hypotension, unspecified; R00.0 Tachycardia, unspecified; E87.5 Hyperkalemia; Z99.81 Dependence on supplemental oxygen; I25.2 Old myocardial infarction; Z90.5 Acquired absence of kidney; Z85.53 Personal history of malignant neoplasm of renal pelvis; Z79.82 Long term (current) use of aspirin; Z79.52 Long term (current) use of systemic steroids; Z79.899 Other long term (current) drug therapy; Z80.0 Family history of malignant neoplasm of digestive organs; Z87.891 Personal history of nicotine dependence
CPT/HCPCS: 36415; 36600; 70450; 71045; 71250; 80048; 80053; 80202; 80320; 81003; 81015; 82803; 83605; 83735; 84100; 84484; 85025; 85060; 86140; 87070; 87086; 87205; 93005; 94640; 94660; 94667; 94668; 99285; A9270-GY; C1751; G0480; J0692; J1644; J1650; J2270; J2543; J2930; J3010; J3370; J3490; J3535; J7611